=== PATIENT | male | born 1955 | race Caucasian/White ===

== ENCOUNTER 2016-05-02 08:00 | Outpatient (CLI) | payer MEDICARE | END 2016-05-02 08:01 | disposition home or self-care (01) | DX: I48.91 Unspecified atrial fibrillation (principal); Z79.899 Other long term (current) drug therapy ==

== ENCOUNTER 2016-05-29 13:22 | Outpatient (CLI) | payer MEDICARE | END 2016-05-29 13:23 | disposition home or self-care (01) | DX: I48.91 Unspecified atrial fibrillation (principal); Z79.899 Other long term (current) drug therapy ==

== ENCOUNTER 2016-06-13 15:24 | Outpatient (CLI) | payer MEDICARE | END 2016-06-13 15:25 | disposition home or self-care (01) | DX: I48.91 Unspecified atrial fibrillation (principal); Z79.899 Other long term (current) drug therapy ==

== ENCOUNTER 2016-06-29 14:25 | Outpatient (CLI) | payer MEDICARE | END 2016-06-29 14:26 | DX: I48.91 Unspecified atrial fibrillation (principal); Z79.01 Long term (current) use of anticoagulants ==

== ENCOUNTER 2016-07-10 10:05 | Outpatient (CLI) | payer MEDICARE | END 2016-07-10 10:06 | disposition home or self-care (01) | DX: I48.91 Unspecified atrial fibrillation (principal); Z79.899 Other long term (current) drug therapy ==

== ENCOUNTER 2016-07-21 13:01 | Outpatient (CLI) | payer MEDICARE | END 2016-07-21 13:02 | disposition home or self-care (01) | DX: I48.91 Unspecified atrial fibrillation (principal); Z79.899 Other long term (current) drug therapy ==

== ENCOUNTER 2016-08-03 14:54 | Outpatient (CLI) | payer MEDICARE | END 2016-08-03 14:55 | disposition home or self-care (01) | DX: I48.91 Unspecified atrial fibrillation (principal); Z79.899 Other long term (current) drug therapy ==

== ENCOUNTER 2016-08-03 16:08 | Outpatient (CLI) | payer MEDICARE, MEDICAID | END 2016-08-03 16:09 | disposition home or self-care (01) | DX: M51.37 Other intervertebral disc degeneration, lumbosacral region (principal); M41.85 Other forms of scoliosis, thoracolumbar region; M43.17 Spondylolisthesis, lumbosacral region; M95.5 Acquired deformity of pelvis ==

== ENCOUNTER 2016-08-15 08:00 | Outpatient (CLI) | payer MEDICARE | END 2016-08-15 08:01 | DX: E78.5 Hyperlipidemia, unspecified (principal); I48.91 Unspecified atrial fibrillation; E11.9 Type 2 diabetes mellitus without complications; I50.9 Heart failure, unspecified; Z79.899 Other long term (current) drug therapy ==

== ENCOUNTER 2016-09-01 11:56 | Outpatient (CLI) | payer MEDICARE | END 2016-09-01 11:57 | disposition home or self-care (01) | DX: L97.909 Non-pressure chronic ulcer of unspecified part of unspecified lower leg with unspecified severity (principal) ==

== ENCOUNTER 2016-09-04 08:00 | Outpatient (CLI) | payer MEDICARE | END 2016-09-04 08:01 | disposition home or self-care (01) | DX: I48.91 Unspecified atrial fibrillation (principal); Z79.899 Other long term (current) drug therapy; K92.1 Melena ==

== ENCOUNTER 2016-09-21 06:54 | Outpatient (CLI) | payer MEDICARE | END 2016-09-21 06:55 | LOC: LAB.N 06:54 | PROVIDERS: ATTEND Nurse Practitioner Gerontology | DX: I48.91 Unspecified atrial fibrillation (principal); Z79.899 Other long term (current) drug therapy | CPT/HCPCS: 85610 ==

== ENCOUNTER 2016-09-26 08:00 | Outpatient (CLI) | payer MEDICAID, MEDICARE | END 2016-09-26 08:01 | disposition home or self-care (01) | LOC: LAB.N 08:00 | PROVIDERS: ATTEND Nurse Practitioner Gerontology | DX: I48.91 Unspecified atrial fibrillation (principal); Z79.899 Other long term (current) drug therapy | CPT/HCPCS: 85610 ==

== ENCOUNTER 2016-10-09 08:00 | Outpatient (CLI) | payer MEDICAID, MEDICARE | END 2016-10-09 08:01 | LOC: LAB.N 08:00 | PROVIDERS: ATTEND Nurse Practitioner Gerontology | DX: I48.91 Unspecified atrial fibrillation (principal) | CPT/HCPCS: 85610 ==

== ENCOUNTER 2016-10-23 15:07 | Outpatient (CLI) | payer MEDICARE | END 2016-10-23 15:08 | disposition home or self-care (01) | LOC: LAB.N 15:07 | PROVIDERS: ATTEND Nurse Practitioner Gerontology | DX: I48.91 Unspecified atrial fibrillation (principal) | CPT/HCPCS: 85610 ==

== ENCOUNTER 2016-11-10 13:21 | Outpatient (CLI) | payer MEDICARE | END 2016-11-10 13:22 | disposition home or self-care (01) | LOC: LAB.N 13:21 | PROVIDERS: ATTEND Nurse Practitioner Gerontology | DX: I48.91 Unspecified atrial fibrillation (principal); Z79.899 Other long term (current) drug therapy | CPT/HCPCS: 85610 ==

== ENCOUNTER 2016-11-20 14:29 | Outpatient (CLI) | payer MEDICARE ==
[2016-11-20 21:17] LABS: HEMOGLOBIN A1C 0.83 g/dL
== END 2016-11-20 14:30 | disposition home or self-care (01) ==
LOC: LAB.N 14:29
PROVIDERS: ATTEND Nurse Practitioner Gerontology
DX: E11.9 Type 2 diabetes mellitus without complications (principal)
CPT/HCPCS: 36415; 83036

== ENCOUNTER 2016-11-30 14:24 | Outpatient (CLI) | payer MEDICARE | END 2016-11-30 14:25 | disposition home or self-care (01) | LOC: LAB.N 14:24 | PROVIDERS: ATTEND Nurse Practitioner Gerontology | DX: I48.91 Unspecified atrial fibrillation (principal); Z79.899 Other long term (current) drug therapy | CPT/HCPCS: 85610 ==

== ENCOUNTER 2016-12-06 09:02 | Outpatient (CLI) | payer MEDICARE | END 2016-12-06 09:03 | LOC: LAB.N 09:02 | PROVIDERS: ATTEND Nurse Practitioner Gerontology | DX: I48.91 Unspecified atrial fibrillation (principal) | CPT/HCPCS: 85610 ==

== ENCOUNTER 2016-12-18 14:34 | Outpatient (CLI) | payer MEDICARE | END 2016-12-18 14:35 | LOC: LAB.N 14:34 | PROVIDERS: ATTEND Nurse Practitioner Gerontology | DX: I48.91 Unspecified atrial fibrillation (principal) | CPT/HCPCS: 85610 ==

== ENCOUNTER 2017-01-02 13:57 | Outpatient (CLI) | payer MEDICARE | END 2017-01-02 13:58 | disposition home or self-care (01) | LOC: LAB.N 13:57 | PROVIDERS: ATTEND Nurse Practitioner Gerontology | DX: I48.91 Unspecified atrial fibrillation (principal); Z79.899 Other long term (current) drug therapy | CPT/HCPCS: 85610 ==

== ENCOUNTER 2017-01-10 15:30 | Outpatient (CLI) | payer MEDICARE | END 2017-01-10 15:31 | LOC: LAB.N 15:30 | PROVIDERS: ATTEND Nurse Practitioner Gerontology | DX: I48.91 Unspecified atrial fibrillation (principal); Z79.899 Other long term (current) drug therapy | CPT/HCPCS: 85610 ==

== ENCOUNTER 2017-01-25 14:29 | Outpatient (CLI) | payer MEDICARE | END 2017-01-25 14:30 | LOC: LAB.N 14:29 | PROVIDERS: ATTEND Nurse Practitioner Gerontology | DX: I48.91 Unspecified atrial fibrillation (principal); Z79.899 Other long term (current) drug therapy | CPT/HCPCS: 85610 ==

== ENCOUNTER 2017-01-31 14:43 | Outpatient (CLI) | payer MEDICARE | END 2017-01-31 14:44 | disposition home or self-care (01) | LOC: LAB.N 14:43 | PROVIDERS: ATTEND Nurse Practitioner Gerontology | DX: I48.91 Unspecified atrial fibrillation (principal); Z79.899 Other long term (current) drug therapy | CPT/HCPCS: 85610 ==

== ENCOUNTER 2017-02-15 08:00 | Outpatient (CLI) | payer MEDICARE | END 2017-02-15 08:01 | disposition home or self-care (01) | LOC: LAB.N 08:00 | PROVIDERS: ATTEND Nurse Practitioner Gerontology | DX: I48.91 Unspecified atrial fibrillation (principal); Z79.899 Other long term (current) drug therapy | CPT/HCPCS: 85610 ==

== ENCOUNTER 2017-03-01 15:03 | Outpatient (CLI) | payer MEDICARE | END 2017-03-01 15:04 | LOC: LAB.N 15:03 | PROVIDERS: ATTEND Nurse Practitioner Gerontology | DX: I48.91 Unspecified atrial fibrillation (principal); Z79.899 Other long term (current) drug therapy | CPT/HCPCS: 85610 ==

== ENCOUNTER 2017-03-16 08:00 | Outpatient (CLI) | payer MEDICARE | END 2017-03-16 08:01 | disposition home or self-care (01) | LOC: LAB.N 08:00 | PROVIDERS: ATTEND Nurse Practitioner Gerontology | DX: I48.91 Unspecified atrial fibrillation (principal); Z79.899 Other long term (current) drug therapy | CPT/HCPCS: 85610 ==

== ENCOUNTER 2017-03-30 14:19 | Outpatient (CLI) | payer MEDICARE | END 2017-03-30 14:20 | disposition home or self-care (01) | LOC: LAB.N 14:19 | PROVIDERS: ATTEND Nurse Practitioner Gerontology | DX: I48.91 Unspecified atrial fibrillation (principal); Z79.899 Other long term (current) drug therapy | CPT/HCPCS: 85610 ==

== ENCOUNTER 2017-04-19 08:00 | Outpatient (CLI) | payer MEDICARE ==
[2017-04-19 19:00] LABS: CALCIUM 8.8 mg/dL (8.5-10.3); CREATININE 1.3 mg/dL (0.6-1.2); POTASSIUM 4.9 mmol/L (3.5-5.0)
[2017-04-19 19:09] LABS: HEMOGLOBIN A1C 0.92 g/dL
== END 2017-04-19 23:59 ==
LOC: LAB.N 08:00
PROVIDERS: ATTEND Nurse Practitioner Gerontology
DX: E11.40 Type 2 diabetes mellitus with diabetic neuropathy, unspecified (principal); I48.91 Unspecified atrial fibrillation; N18.9 Chronic kidney disease, unspecified; Z79.899 Other long term (current) drug therapy
CPT/HCPCS: 36415; 80048; 83036; 85610

== ENCOUNTER 2017-05-10 08:00 | Outpatient (CLI) | payer MEDICARE | END 2017-05-10 08:01 | disposition home or self-care (01) | LOC: LAB.N 08:00 | PROVIDERS: ATTEND Nurse Practitioner Gerontology | DX: I48.91 Unspecified atrial fibrillation (principal); Z79.899 Other long term (current) drug therapy | CPT/HCPCS: 85610 ==

== ENCOUNTER 2017-05-25 13:45 | Outpatient (CLI) | payer MEDICARE | END 2017-05-25 13:46 | disposition home or self-care (01) | LOC: LAB.N 13:45 | PROVIDERS: ATTEND Nurse Practitioner Gerontology | DX: Z79.899 Other long term (current) drug therapy (principal); I48.91 Unspecified atrial fibrillation | CPT/HCPCS: 85610 ==

== ENCOUNTER 2017-07-02 14:17 | Outpatient (CLI) | payer MEDICARE | END 2017-07-02 14:18 | disposition home or self-care (01) | LOC: LAB.N 14:17 | PROVIDERS: ATTEND Nurse Practitioner Gerontology | DX: I48.91 Unspecified atrial fibrillation (principal); Z79.899 Other long term (current) drug therapy | CPT/HCPCS: 85610 ==

== ENCOUNTER 2017-08-08 08:00 | Outpatient (CLI) | payer MEDICARE | END 2017-08-08 08:01 | LOC: LAB.N 08:00 | PROVIDERS: ATTEND Nurse Practitioner Gerontology | DX: I48.91 Unspecified atrial fibrillation (principal); Z79.899 Other long term (current) drug therapy | CPT/HCPCS: 85610 ==

== ENCOUNTER 2017-08-15 09:33 | Outpatient (CLI) | payer MEDICARE | END 2017-08-15 09:34 | disposition home or self-care (01) | LOC: LAB.N 09:33 | PROVIDERS: ATTEND Nurse Practitioner Gerontology | DX: I48.91 Unspecified atrial fibrillation (principal); Z79.899 Other long term (current) drug therapy | CPT/HCPCS: 85610 ==

== ENCOUNTER 2017-08-21 08:47 | Outpatient (CLI) | payer MEDICARE ==
[2017-08-21 12:48] LABS: CALCIUM 8.9 mg/dL (8.5-10.3); CREATININE 1.2 mg/dL (0.6-1.2); HEMOGLOBIN A1C 1.13 g/dL; HEMOGLOBIN A1C % 8.6 % (4.6-6.2)
== END 2017-08-21 08:48 | disposition home or self-care (01) ==
LOC: LAB.N 08:47
PROVIDERS: ATTEND Nurse Practitioner Gerontology
DX: E11.40 Type 2 diabetes mellitus with diabetic neuropathy, unspecified (principal); I48.91 Unspecified atrial fibrillation; Z79.899 Other long term (current) drug therapy
CPT/HCPCS: 36415; 80048; 82043; 83036; 85610

== ENCOUNTER 2017-08-28 08:00 | Outpatient (CLI) | payer MEDICARE | END 2017-08-28 08:01 | LOC: LAB.N 08:00 | PROVIDERS: ATTEND Nurse Practitioner Gerontology | DX: I48.91 Unspecified atrial fibrillation (principal); Z79.899 Other long term (current) drug therapy | CPT/HCPCS: 85610 ==

== ENCOUNTER 2017-09-17 11:37 | Outpatient (CLI) | payer MEDICARE | END 2017-09-17 11:38 | disposition home or self-care (01) | LOC: LAB.N 11:37 | PROVIDERS: ATTEND Nurse Practitioner Gerontology | DX: I48.91 Unspecified atrial fibrillation (principal); Z79.899 Other long term (current) drug therapy | CPT/HCPCS: 85610 ==

== ENCOUNTER 2017-10-01 13:29 | Outpatient (CLI) | payer MEDICARE, MEDICAID | END 2017-10-01 13:30 | disposition home or self-care (01) | LOC: LAB.N 13:29 | PROVIDERS: ATTEND Nurse Practitioner Gerontology | DX: I48.91 Unspecified atrial fibrillation (principal); Z79.899 Other long term (current) drug therapy | CPT/HCPCS: 85610 ==

== ENCOUNTER 2017-10-03 08:00 | Outpatient (CLI) | payer MEDICARE, MEDICAID | END 2017-10-03 08:01 | disposition home or self-care (01) | LOC: LAB.N 08:00 | PROVIDERS: ATTEND Nurse Practitioner Gerontology | DX: I48.91 Unspecified atrial fibrillation (principal); Z79.899 Other long term (current) drug therapy | CPT/HCPCS: 85610 ==

== ENCOUNTER 2017-10-09 14:35 | Outpatient (CLI) | payer MEDICARE, MEDICAID | END 2017-10-09 14:36 | LOC: LAB.N 14:35 | PROVIDERS: ATTEND Nurse Practitioner Gerontology | DX: I48.91 Unspecified atrial fibrillation (principal); Z79.899 Other long term (current) drug therapy | CPT/HCPCS: 85610 ==

== ENCOUNTER 2017-10-11 14:03 | Outpatient (CLI) | payer MEDICARE, MEDICAID | END 2017-10-11 14:04 | disposition home or self-care (01) | LOC: LAB.N 14:03 | PROVIDERS: ATTEND Nurse Practitioner Gerontology | DX: I48.91 Unspecified atrial fibrillation (principal); Z79.899 Other long term (current) drug therapy | CPT/HCPCS: 85610 ==

== ENCOUNTER 2017-10-22 14:39 | Outpatient (CLI) | payer MEDICARE, MEDICAID | END 2017-10-22 14:40 | disposition home or self-care (01) | LOC: LAB.N 14:39 | PROVIDERS: ATTEND Nurse Practitioner Gerontology | DX: I48.91 Unspecified atrial fibrillation (principal); Z79.899 Other long term (current) drug therapy | CPT/HCPCS: 85610 ==

== ENCOUNTER 2017-11-02 13:26 | Outpatient (CLI) | payer MEDICARE, MEDICAID | END 2017-11-02 13:27 | disposition home or self-care (01) | LOC: LAB.N 13:26 | PROVIDERS: ATTEND Nurse Practitioner Gerontology | DX: I48.91 Unspecified atrial fibrillation (principal); Z79.899 Other long term (current) drug therapy | CPT/HCPCS: 85610 ==

== ENCOUNTER 2017-11-13 10:46 | Outpatient (CLI) | payer MEDICARE, MEDICAID | END 2017-11-13 10:47 | disposition home or self-care (01) | LOC: LAB.N 10:46 | PROVIDERS: ATTEND Nurse Practitioner Gerontology | DX: I48.91 Unspecified atrial fibrillation (principal); Z79.899 Other long term (current) drug therapy | CPT/HCPCS: 85610 ==

== ENCOUNTER 2017-11-19 08:00 | Outpatient (CLI) | payer MEDICARE, MEDICAID | END 2017-11-19 08:01 | disposition home or self-care (01) | LOC: LAB.N 08:00 | PROVIDERS: ATTEND Nurse Practitioner Gerontology | DX: I48.91 Unspecified atrial fibrillation (principal); Z79.899 Other long term (current) drug therapy | CPT/HCPCS: 85610 ==

== ENCOUNTER 2017-11-30 14:45 | Outpatient (CLI) | payer MEDICARE, MEDICAID | END 2017-11-30 14:46 | disposition home or self-care (01) | LOC: LAB.N 14:45 | PROVIDERS: ATTEND Nurse Practitioner Gerontology | DX: I48.91 Unspecified atrial fibrillation (principal); Z79.899 Other long term (current) drug therapy | CPT/HCPCS: 85610 ==

== ENCOUNTER 2018-01-07 08:00 | Outpatient (CLI) | payer MEDICARE, MEDICAID | END 2018-01-07 08:01 | LOC: LAB.N 08:00 | PROVIDERS: ATTEND Nurse Practitioner Gerontology | DX: I48.91 Unspecified atrial fibrillation (principal); Z79.899 Other long term (current) drug therapy | CPT/HCPCS: 85610 ==

== ENCOUNTER 2018-02-05 15:41 | Outpatient (CLI) | payer MEDICARE, MEDICAID | END 2018-02-05 15:42 | LOC: LAB.N 15:41 | PROVIDERS: ATTEND Nurse Practitioner Gerontology | DX: I48.91 Unspecified atrial fibrillation (principal); Z79.899 Other long term (current) drug therapy | CPT/HCPCS: 85610 ==

== ENCOUNTER 2018-03-14 11:20 | Outpatient (CLI) | payer MEDICARE, MEDICAID ==
[2018-03-14 19:40] LABS: INR 2.5 (0.8-1.2); PT - PROTHROMBIN TIME 28.5 secs (9.9-12.6)
== END 2018-03-14 11:21 ==
LOC: LAB.N 11:20
PROVIDERS: ATTEND Nurse Practitioner Gerontology
DX: I48.91 Unspecified atrial fibrillation (principal); Z79.899 Other long term (current) drug therapy
CPT/HCPCS: 36415; 85610

== ENCOUNTER 2018-06-06 08:00 | Outpatient (CLI) | payer MEDICARE, MEDICAID ==
[2018-06-06 18:50] LABS: BASOPHILS # (AUTO) 0.1 10^3/uL (0.0-0.1); EOSINOPHILS # (AUTO) 0.1 10^3/uL (0.0-0.7); EOSINOPHILS % (AUTO) 2.3 %; HGB - HEMOGLOBIN 13.5 g/dL (14.0-18.0); LYMPHOCYTES # (AUTO) 0.8 10^3/uL (1.5-3.5); LYMPHOCYTES % (AUTO) 12.9 %; MEAN CORPUSCULAR HEMOGLOBIN 31.2 pg (27.0-31.0); MEAN CORPUSCULAR HGB CONC 32.6 g/dL (32.0-36.0); MEAN PLATELET VOLUME 9.1 fL (7.4-11.4); MONOCYTES # (AUTO) 0.7 10^3/uL (0.0-1.0); MONOCYTES % (AUTO) 10.9 %; NEUTROPHILS # (AUTO) 4.6 10^3/uL (1.5-6.6); NEUTROPHILS % (AUTO) 72.9 %; PLT - PLATELET COUNT 205 10^3/uL (130-450); RED BLOOD COUNT 4.31 10^6/uL (4.70-6.10); RED CELL DISTRIBUTION WIDTH 15.3 % (12.0-15.0); WHITE BLOOD COUNT 6.4 x10^3/uL (4.8-10.8)
[2018-06-06 19:21] LABS: ALBUMIN 3.6 g/dL (3.2-5.5); ALBUMIN/GLOBULIN RATIO 0.9 (1.0-2.2); ALKALINE PHOSPHATASE 49 IU/L (42-121); ALT ALANINE AMINOTRANSFERASE 24 IU/L (10-60); AST ASPARTATE AMINOTRANSFERASE 19 IU/L (10-42); BILIRUBIN,TOTAL 0.8 mg/dL (0.2-1.0); BUN - BLOOD UREA NITROGEN 17 mg/dL (6-20); CALCIUM 8.9 mg/dL (8.5-10.3); CARBON DIOXIDE - CO2 27 mmol/L (21-32); CHLORIDE 100 mmol/L (101-111); CHOL/HDL RATIO 4.3 (<5.0); CHOLESTEROL 149 mg/dL; GFR - MDRD 75 (>89); GLUCOSE 199 mg/dL (70-100); HDL CHOLESTEROL 35 mg/dL; LDL CHOLESTEROL,CALCULATED 91 mg/dL; LDL/HDL RATIO 2.6 (<3.6); SODIUM 134 mmol/L (135-145); TOTAL PROTEIN 7.5 g/dL (6.7-8.2); VLDL CHOLESTEROL 23 mg/dL
== END 2018-06-06 23:59 | disposition home or self-care (01) ==
LOC: LAB.N 08:00
PROVIDERS: ATTEND Nurse Practitioner Gerontology
DX: I48.91 Unspecified atrial fibrillation (principal); Z79.899 Other long term (current) drug therapy; I12.9 Hypertensive chronic kidney disease with stage 1 through stage 4 chronic kidney disease, or unspecified chronic kidney disease; N18.9 Chronic kidney disease, unspecified; E11.622 Type 2 diabetes mellitus with other skin ulcer; E78.5 Hyperlipidemia, unspecified
CPT/HCPCS: 36415; 80053; 80061; 83721; 84443; 85025; 85610

== ENCOUNTER 2018-06-18 08:00 | Outpatient (CLI) | payer MEDICARE, MEDICAID | END 2018-06-18 23:59 | disposition home or self-care (01) | LOC: LAB.N 08:00 | PROVIDERS: ATTEND Nurse Practitioner Gerontology | DX: I48.91 Unspecified atrial fibrillation (principal); Z79.899 Other long term (current) drug therapy | CPT/HCPCS: 85610 ==

== ENCOUNTER 2018-08-28 08:00 | Outpatient (CLI) | payer MEDICARE, MEDICAID | END 2018-08-28 23:59 | disposition home or self-care (01) | LOC: LAB.N 08:00 | PROVIDERS: ATTEND Nurse Practitioner Gerontology | DX: I48.91 Unspecified atrial fibrillation (principal); Z79.899 Other long term (current) drug therapy | CPT/HCPCS: 85610 ==

== ENCOUNTER 2018-09-02 08:00 | Outpatient (CLI) | payer MEDICARE, MEDICAID | END 2018-09-02 23:59 | disposition home or self-care (01) | LOC: LAB.N 08:00 | PROVIDERS: ATTEND Nurse Practitioner Gerontology | DX: I48.91 Unspecified atrial fibrillation (principal); Z79.899 Other long term (current) drug therapy | CPT/HCPCS: 85610 ==

== ENCOUNTER 2018-09-04 14:24 | Outpatient (CLI) | payer MEDICARE, MEDICAID | END 2018-09-04 23:59 | disposition home or self-care (01) | LOC: LAB.N 14:24 | PROVIDERS: ATTEND Nurse Practitioner Gerontology | DX: I48.91 Unspecified atrial fibrillation (principal); Z79.899 Other long term (current) drug therapy | CPT/HCPCS: 85610 ==

== ENCOUNTER 2018-09-18 14:32 | Outpatient (CLI) | payer MEDICARE, MEDICAID | END 2018-09-18 23:59 | disposition home or self-care (01) | LOC: LAB.N 14:32 | PROVIDERS: ATTEND Nurse Practitioner Gerontology | DX: I48.91 Unspecified atrial fibrillation (principal); Z79.899 Other long term (current) drug therapy | CPT/HCPCS: 85610 ==

== ENCOUNTER 2018-09-26 08:00 | Outpatient (CLI) | payer MEDICARE, MEDICAID | END 2018-09-26 23:59 | disposition home or self-care (01) | LOC: LAB.N 08:00 | PROVIDERS: ATTEND Nurse Practitioner Gerontology | DX: I48.91 Unspecified atrial fibrillation (principal); Z79.899 Other long term (current) drug therapy | CPT/HCPCS: 85610 ==

== ENCOUNTER 2018-10-04 08:00 | Outpatient (CLI) | payer MEDICARE, MEDICAID | END 2018-10-04 23:59 | disposition home or self-care (01) | LOC: LAB.N 08:00 | PROVIDERS: ATTEND Nurse Practitioner Gerontology | DX: I48.91 Unspecified atrial fibrillation (principal); Z79.899 Other long term (current) drug therapy | CPT/HCPCS: 85610 ==

== ENCOUNTER 2018-10-14 08:00 | Outpatient (CLI) | payer MEDICARE, MEDICAID | END 2018-10-14 23:59 | disposition home or self-care (01) | LOC: LAB.N 08:00 | PROVIDERS: ATTEND Nurse Practitioner Gerontology | DX: I48.91 Unspecified atrial fibrillation (principal); Z79.899 Other long term (current) drug therapy | CPT/HCPCS: 85610 ==

== ENCOUNTER 2018-10-30 08:00 | Outpatient (CLI) | payer MEDICARE, MEDICAID | END 2018-10-30 23:59 | disposition home or self-care (01) | LOC: LAB.N 08:00 | PROVIDERS: ATTEND Nurse Practitioner Gerontology | DX: I48.91 Unspecified atrial fibrillation (principal) | CPT/HCPCS: 85610 ==

== ENCOUNTER 2018-11-13 15:44 | Outpatient (CLI) | payer MEDICARE, MEDICAID | END 2018-11-13 23:59 | disposition home or self-care (01) | LOC: LAB.N 15:44 | PROVIDERS: ATTEND Nurse Practitioner Gerontology | DX: I48.91 Unspecified atrial fibrillation (principal); Z79.899 Other long term (current) drug therapy | CPT/HCPCS: 85610 ==

== ENCOUNTER 2018-12-03 08:00 | Outpatient (CLI) | payer MEDICARE, MEDICAID | END 2018-12-03 23:59 | disposition home or self-care (01) | LOC: LAB.N 08:00 | PROVIDERS: ATTEND Nurse Practitioner Gerontology | DX: I48.91 Unspecified atrial fibrillation (principal); Z79.899 Other long term (current) drug therapy | CPT/HCPCS: 85610 ==

== ENCOUNTER 2019-01-07 08:00 | Outpatient (CLI) | payer MEDICARE, MEDICAID | END 2019-01-07 23:59 | disposition home or self-care (01) | LOC: LAB.N 08:00 | PROVIDERS: ATTEND Nurse Practitioner Gerontology | DX: I48.91 Unspecified atrial fibrillation (principal); Z79.899 Other long term (current) drug therapy | CPT/HCPCS: 85610 ==

== ENCOUNTER 2019-03-03 08:00 | Outpatient (CLI) | payer MEDICARE, MEDICAID ==
[2019-03-03 19:05] LABS: BASOPHILS # (AUTO) 0.1 10^3/uL (0.0-0.1); BASOPHILS % (AUTO) 0.6 %; EOSINOPHILS % (AUTO) 0.1 %; HGB - HEMOGLOBIN 13.2 g/dL (14.0-18.0); LYMPHOCYTES # (AUTO) 1.1 10^3/uL (1.5-3.5); LYMPHOCYTES % (AUTO) 13.3 %; MEAN CORPUSCULAR HEMOGLOBIN 29.1 pg (27.0-31.0); MEAN CORPUSCULAR HGB CONC 31.1 g/dL (32.0-36.0); MEAN CORPUSCULAR VOLUME 93.6 fL (80.0-94.0); MEAN PLATELET VOLUME 11.3 fL (7.4-11.4); MONOCYTES # (AUTO) 0.6 10^3/uL (0.0-1.0); MONOCYTES % (AUTO) 6.9 %; NEUTROPHILS # (AUTO) 6.4 10^3/uL (1.5-6.6); PLT - PLATELET COUNT 273 10^3/uL (130-450); RED BLOOD COUNT 4.54 10^6/uL (4.70-6.10); RED CELL DISTRIBUTION WIDTH 14.5 % (12.0-15.0); WHITE BLOOD COUNT 8.2 x10^3/uL (4.8-10.8)
[2019-03-03 19:40] LABS: ALBUMIN 2.8 g/dL (3.2-5.5); ALBUMIN/GLOBULIN RATIO 0.5 (1.0-2.2); ALKALINE PHOSPHATASE 63 IU/L (42-121); ALT ALANINE AMINOTRANSFERASE 16 IU/L (10-60); AST ASPARTATE AMINOTRANSFERASE 18 IU/L (10-42); BILIRUBIN,TOTAL 0.5 mg/dL (0.2-1.0); BUN - BLOOD UREA NITROGEN 24 mg/dL (6-20); CALCIUM 8.4 mg/dL (8.5-10.3); CARBON DIOXIDE - CO2 25 mmol/L (21-32); CHLORIDE 93 mmol/L (101-111); CHOL/HDL RATIO 3.9 (<5.0); CHOLESTEROL 170 mg/dL; CREATININE 1.3 mg/dL (0.6-1.2); GFR - MDRD 55 (>89); HDL CHOLESTEROL 44 mg/dL; LDL CHOLESTEROL,CALCULATED 99 mg/dL; LDL/HDL RATIO 2.3 (<3.6); SODIUM 128 mmol/L (135-145); VLDL CHOLESTEROL 27 mg/dL
[2019-03-03 19:48] LABS: HB2 TOTAL 13.4 g/dL; HEMOGLOBIN A1C 1.95 g/dL; HEMOGLOBIN A1C % 15.5 % (4.6-6.2)
[2019-03-03 19:50] LABS: GLUCOSE 584 mg/dL (70-100)
== END 2019-03-03 23:59 | disposition home or self-care (01) ==
LOC: LAB.N 08:00
PROVIDERS: ATTEND Nurse Practitioner Gerontology
DX: I48.91 Unspecified atrial fibrillation (principal); Z79.899 Other long term (current) drug therapy; E11.622 Type 2 diabetes mellitus with other skin ulcer; E78.5 Hyperlipidemia, unspecified; I11.0 Hypertensive heart disease with heart failure; I50.9 Heart failure, unspecified; R06.02 Shortness of breath
CPT/HCPCS: 36415; 80053; 80061; 83036; 83721; 83880; 85025; 85610

== ENCOUNTER 2019-03-10 14:51 | Outpatient (CLI) | payer MEDICARE, MEDICAID | END 2019-03-10 23:59 | disposition home or self-care (01) | LOC: LAB.N 14:51 | PROVIDERS: ATTEND Nurse Practitioner Gerontology | DX: I48.91 Unspecified atrial fibrillation (principal); Z79.899 Other long term (current) drug therapy | CPT/HCPCS: 85610 ==

== ENCOUNTER 2019-03-17 14:59 | Outpatient (CLI) | payer MEDICARE, MEDICAID | END 2019-03-17 23:59 | disposition home or self-care (01) | LOC: LAB.N 14:59 | PROVIDERS: ATTEND Nurse Practitioner Gerontology | DX: I48.91 Unspecified atrial fibrillation (principal); Z79.899 Other long term (current) drug therapy | CPT/HCPCS: 85610 ==

== ENCOUNTER 2019-03-24 15:45 | Outpatient (CLI) | payer MEDICARE, MEDICAID | END 2019-03-24 23:59 | disposition home or self-care (01) | LOC: LAB.N 15:45 | PROVIDERS: ATTEND Nurse Practitioner Gerontology | DX: I48.91 Unspecified atrial fibrillation (principal); Z79.899 Other long term (current) drug therapy | CPT/HCPCS: 85610 ==

== ENCOUNTER 2019-03-31 15:16 | Outpatient (CLI) | payer MEDICAID, MEDICARE | END 2019-03-31 23:59 | disposition home or self-care (01) | LOC: LAB.N 15:16 | PROVIDERS: ATTEND Nurse Practitioner Gerontology | DX: I48.91 Unspecified atrial fibrillation (principal); Z79.899 Other long term (current) drug therapy | CPT/HCPCS: 85610 ==

== ENCOUNTER 2019-05-06 08:00 | Outpatient (CLI) | payer MEDICARE | END 2019-05-06 23:59 | disposition home or self-care (01) | LOC: LAB.N 08:00 | PROVIDERS: ATTEND Nurse Practitioner Gerontology | DX: I48.91 Unspecified atrial fibrillation (principal); Z79.899 Other long term (current) drug therapy | CPT/HCPCS: 85610 ==

== ENCOUNTER 2019-06-10 14:35 | Outpatient (CLI) | payer MEDICARE | END 2019-06-10 23:59 | disposition home or self-care (01) | LOC: LAB.N 14:35 | PROVIDERS: ATTEND Nurse Practitioner Gerontology | DX: I48.91 Unspecified atrial fibrillation (principal); Z79.899 Other long term (current) drug therapy | CPT/HCPCS: 85610 ==

== ENCOUNTER 2019-06-19 14:37 | Outpatient (CLI) | payer MEDICARE ==
[2019-06-19 18:44] LABS: HB2 TOTAL 14.5 g/dL; HEMOGLOBIN A1C 1.09 g/dL
== END 2019-06-19 23:59 | disposition home or self-care (01) ==
LOC: LAB.N 14:37
PROVIDERS: ATTEND Nurse Practitioner Gerontology
DX: E11.40 Type 2 diabetes mellitus with diabetic neuropathy, unspecified (principal); I48.91 Unspecified atrial fibrillation; Z79.899 Other long term (current) drug therapy
CPT/HCPCS: 36415; 83036; 85610

== ENCOUNTER 2019-07-03 14:24 | Outpatient (CLI) | payer MEDICARE | END 2019-07-03 23:59 | disposition home or self-care (01) | LOC: LAB.N 14:24 | PROVIDERS: ATTEND Nurse Practitioner Gerontology | DX: I48.91 Unspecified atrial fibrillation (principal); Z79.899 Other long term (current) drug therapy | CPT/HCPCS: 85610 ==

== ENCOUNTER 2019-11-12 08:00 | Outpatient (CLI) | payer MEDICARE | END 2019-11-12 23:59 | disposition home or self-care (01) | LOC: LAB.WCP 08:00 | PROVIDERS: ATTEND Physician Assistant | DX: I48.91 Unspecified atrial fibrillation (principal); Z79.01 Long term (current) use of anticoagulants ==

== ENCOUNTER 2019-12-25 08:00 | Outpatient (CLI) | payer MEDICARE | END 2019-12-25 23:59 | disposition home or self-care (01) | LOC: LAB.WCP 08:00 | PROVIDERS: ATTEND Nurse Practitioner Family | DX: I48.91 Unspecified atrial fibrillation (principal); Z79.01 Long term (current) use of anticoagulants ==

== ENCOUNTER 2020-04-06 16:10 | Outpatient (CLI) | payer MEDICARE ==
[2020-04-06 20:35] LABS: BASOPHILS # (AUTO) 0.1 10^3/uL (0.0-0.1); BASOPHILS % (AUTO) 1.5 %; EOSINOPHILS # (AUTO) 0.2 10^3/uL (0.0-0.7); EOSINOPHILS % (AUTO) 2.6 %; HGB - HEMOGLOBIN 15.8 g/dL (14.0-18.0); LYMPHOCYTES # (AUTO) 1.3 10^3/uL (1.5-3.5); LYMPHOCYTES % (AUTO) 19.4 %; MEAN CORPUSCULAR HEMOGLOBIN 29.9 pg (27.0-31.0); MEAN CORPUSCULAR HGB CONC 31.2 g/dL (32.0-36.0); MONOCYTES # (AUTO) 0.7 10^3/uL (0.0-1.0); MONOCYTES % (AUTO) 11.2 %; NEUTROPHILS # (AUTO) 4.3 10^3/uL (1.5-6.6); NEUTROPHILS % (AUTO) 64.8 %; PLT - PLATELET COUNT 220 10^3/uL (130-450); RED BLOOD COUNT 5.28 10^6/uL (4.70-6.10); WHITE BLOOD COUNT 6.6 x10^3/uL (4.8-10.8)
[2020-04-06 21:00] LABS: ALBUMIN 3.6 g/dL (3.2-5.5); ALBUMIN/GLOBULIN RATIO 0.9 (1.0-2.2); ALKALINE PHOSPHATASE 56 IU/L (42-121); ALT ALANINE AMINOTRANSFERASE 19 IU/L (10-60); AST ASPARTATE AMINOTRANSFERASE 17 IU/L (10-42); BILIRUBIN,TOTAL 0.5 mg/dL (0.2-1.0); BUN - BLOOD UREA NITROGEN 36 mg/dL (6-20); CALCIUM 8.6 mg/dL (8.5-10.3); CARBON DIOXIDE - CO2 31 mmol/L (21-32); CHLORIDE 95 mmol/L (101-111); CHOL/HDL RATIO 4.9 (<5.0); CHOLESTEROL 186 mg/dL; CREATININE 1.8 mg/dL (0.6-1.2); GLUCOSE 229 mg/dL (70-100); HDL CHOLESTEROL 38 mg/dL; LDL CHOLESTEROL,CALCULATED 90 mg/dL; LDL/HDL RATIO 2.4 (<3.6); SODIUM 135 mmol/L (135-145); TOTAL PROTEIN 7.7 g/dL (6.7-8.2); VLDL CHOLESTEROL 58 mg/dL
[2020-04-06 21:48] LABS: HEMOGLOBIN A1c% 11.4 % (4.27-6.07)
== END 2020-04-06 16:11 | disposition home or self-care (01) ==
LOC: LAB.N 16:10
PROVIDERS: ATTEND Nurse Practitioner Family
DX: E11.622 Type 2 diabetes mellitus with other skin ulcer (principal); I10 Essential (primary) hypertension; E78.5 Hyperlipidemia, unspecified
CPT/HCPCS: 36415; 80053; 80061; 83036; 83721; 85025

== ENCOUNTER 2020-04-15 07:34 | Outpatient (CLI) | payer MEDICARE, MEDICAID ==
--- NOTE | 2020-04-15 14:27 | XRAY Report ---
PROCEDURE: Chest 2 View X-Ray INDICATIONS: Congestive heart failure TECHNIQUE: 2 view(s) of the chest. COMPARISON: None FINDINGS: Surgical changes and devices: None. Lungs and pleura: Small right pleural effusion with overlying airspace opacity. No pneumothorax. T he left lung is clear. Mediastinum: Heart size is normal. Aortic ectasia. Bones and chest wall: No suspicious bony abnormalities. Soft tissues appear unremarkable. IMPRESSION: Small right pleural effusion and overlying airspace opacity which may be atelectasis or pneumonia. Reviewed by: Miller Gross MD on 04/15/2020 1:26 PM [facility] Approved by: Miller Gross MD on 04/15/2020 1:26 PM [facility] Station ID: [id number]
== END 2020-04-15 23:59 | disposition home or self-care (01) ==
LOC: DI.WCP 07:34
PROVIDERS: ATTEND Nurse Practitioner Family
DX: I50.9 Heart failure, unspecified (principal); J90 Pleural effusion, not elsewhere classified

== ENCOUNTER 2020-04-20 11:02 | Outpatient (CLI) | payer MEDICARE, MEDICAID ==
--- OUTSIDE RECORDS SUMMARY | 2020-04-20 15:01 | EXTERNAL MEDICAL SUMMARY RPT | Continuity of Care Document ---
: Demographics Phone Unavailable Preferred Language Occitan Marital Status Unknown Synagogue Affiliation Unknown Race Unknown Ethnic Group Unknown Author Organization [place] Address [address] [id number] Phone Care Team Providers Name Role Phone Jaun MEJÍA, Unavailable Unavailable Ivet MEJÍA Unavailable Unavailable Ivet MEJÍA, Unavailable Unavailable Maher, TACTICAL DEBRIEFER Joann C Unavailable Unavailable Pancho AUTO DAMAGE APPRAISER Ivet S Unavailable Unavailable Ivet Deleon Unavailable Unavailable JAUN ALMANZAR Unavailable Unavailable Iliana Cummins Unavailable Unavailable Clio, Dulce Unavailable Unavailable Julia Carreon Unavailable Unavailable Maher, Joann Unavailable Unavailable Tristin Baldwin Unavailable Unavailable Jess Mai Unavailable Unavailable Cathy Dunn Unavailable Unavailable Provider, Other Unavailable Unavailable Problems date description facility 2012-10-04 08:00 A[facility]IAL [facility]LLATION [facility] 2012-11-18 12:39 ATRIAL FIBRILLATION [facility] 2013-01-02 16:25 CELLULITIS NOS [facility] 2013-01-02 16:25 EDEMA [facility] 2013-01-02 16:30 ATRIAL FIBRILLATION [facility] 2013-01-02 16:30 ANTICOAGULANTS,LT,CURRENT USE [facility] 2013-01-27 10:21 ATRIAL FIBRILLATION [facility] 2013-01-27 10:21 ANTICOAGULANTS,LT,CURRENT USE [facility] 2013-01-28 15:11 OTHER LYMPHEDEMA [facility] 2013-02-10 08:00 ATRIAL FIBRILLATION [facility] 2013-02-10 08:00 ANTICOAGULANTS,LT,CURRENT USE [facility] 2013-03-13 08:36 ATRIAL FIBRILLATION [facility] 2013-03-13 08:36 ANTICOAGULANTS,LT,CURRENT USE [facility] 2013-03-13 15:40 URIN TRACT INFECTION NOS [facility] 2013-03-17 08:35 URIN TRACT INFECTION NOS [facility] 2013-03-24 13:41 ATRIAL FIBRILLATION [facility] 2013-03-24 13:41 ANTICOAGULANTS,LT,CURRENT USE [facility] 2013-04-01 08:13 ATRIAL FIBRILLATION [facility] 2013-04-01 08:13 ANTICOAGULANTS,LT,CURRENT USE [facility] 2013-05-20 12:56 ATRIAL FIBRILLATION [facility] 2013-05-20 12:56 ANTICOAGULANTS,LT,CURRENT USE [facility] 2013-07-15 11:35 DIAB MARGO WO COMPL, TYPE II OR [facility] UNSPEC TYPE, NOT UNCNTRLD 2013-07-15 11:35 HYPTNSV [facility] KID DIS, UNSPEC, W [facility] KD STAGE I-IV OR UNSP 2013-07-15 11:35 ATRIAL FIBRILLATION [facility] 2013-07-15 11:35 CHRONIC KIDNEY DISEASE, [facility] UNSPECIFIED 2013-07-30 10:52 DIAB MARGO WO COMPL, TYPE II OR [facility] UNSPEC TYPE, NOT UNCNTRLD 2013-07-30 10:52 ANEMIA NOS [facility] 2013-07-30 10:52 HYPTNSV [facility] KID DIS, UNSPEC, W [facility] KD STAGE I-IV OR UNSP 2013-07-30 10:52 CHRONIC KIDNEY DISEASE, [facility] UNSPECIFIED 2013-08-11 08:33 ATRIAL FIBRILLATION [facility] 2013-08-11 08:33 ANTICOAGULANTS,LT,CURRENT USE [facility] 2013-08-21 12:44 ATRIAL FIBRILLATION [facility] 2013-08-21 12:44 ANTICOAGULANTS,LT,CURRENT USE [facility] 2013-08-21 14:48 GENERAL MEDICAL EXAM NOS [facility] 2013-09-02 09:10 ATRIAL FIBRILLATION [facility] 2013-09-02 09:10 ANTICOAGULANTS,LT,CURRENT USE [facility] 2013-09-23 00:00 NEPHRITIS NOS [facility] 2013-09-23 00:00 PROTEINURIA [facility] 2013-09-23 19:34 ATRIAL FIBRILLATION [facility] 2013-09-23 19:34 ANTICOAGULANTS,LT,CURRENT USE [facility] 2013-10-13 14:05 ATRIAL FIBRILLATION [facility] 2013-10-13 14:05 ANTICOAGULANTS,LT,CURRENT USE [facility] 2013-10-15 08:18 DIAB MARGO WO COMPL, TYPE II OR [facility] UNSPEC TYPE, NOT UNCNTRLD 2013-10-15 08:18 IMPACTED CERUMEN [facility] 2013-10-15 08:18 PERIPH VASCULAR DIS NOS [facility] 2013-10-15 08:18 ACNE NEC [facility] 2013-10-16 12:12 GENERAL MEDICAL EXAM NOS [facility] 2013-11-06 14:20 ATRIAL FIBRILLATION [facility] 2013-11-06 14:20 ANTICOAGULANTS,LT,CURRENT USE [facility] 2013-12-01 10:00 ATRIAL FIBRILLATION [facility] 2013-12-01 10:00 ANTICOAGULANTS,LT,CURRENT USE [facility] 2014-01-06 10:00 ATRIAL FIBRILLATION [facility] 2014-01-06 10:00 ANTICOAGULANTS,LT,CURRENT USE [facility] 2014-01-15 11:53 DIAB MARGO WO COMPL, TYPE II OR [facility] UNSPEC TYPE, NOT UNCNTRLD 2014-02-18 13:11 DIAB MARGO WO COMPL, TYPE II OR [facility] UNSPEC TYPE, NOT UNCNTRLD 2014-02-18 13:21 ATRIAL FIBRILLATION [facility] 2014-02-18 13:21 ANTICOAGULANTS,LT,CURRENT USE [facility] 2014-03-30 08:00 ATRIAL FIBRILLATION [facility] 2014-03-30 08:00 ANTICOAGULANTS,LT,CURRENT USE [facility] 2014-04-14 16:30 ATRIAL FIBRILLATION [facility] 2014-04-14 16:30 ANTICOAGULANTS,LT,CURRENT USE [facility] 2014-05-07 14:21 ATRIAL FIBRILLATION [facility] 2014-05-07 14:21 ANTICOAGULANTS,LT,CURRENT USE [facility] 2014-05-12 08:52 GENERAL MEDICAL EXAM NOS [facility] 2014-05-26 07:09 ATRIAL FIBRILLATION [facility] 2014-05-26 07:09 ANTICOAGULANTS,LT,CURRENT USE [facility] 2014-05-26 15:25 GENERAL MEDICAL EXAM NOS [facility] 2014-06-08 14:32 ATRIAL FIBRILLATION [facility] 2014-06-08 14:32 ANTICOAGULANTS,LT,CURRENT USE [facility] 2014-06-22 14:35 ATRIAL FIBRILLATION [facility] 2014-06-22 14:35 ANTICOAGULANTS,LT,CURRENT USE [facility] 2014-06-25 15:39 GENERAL MEDICAL EXAM NOS [facility] 2014-07-02 13:00 ATRIAL FIBRILLATION [facility] 2014-07-02 13:00 ANTICOAGULANTS,LT,CURRENT USE [facility] 2014-07-16 08:00 ATRIAL FIBRILLATION [facility] 2014-07-16 08:00 ANTICOAGULANTS,LT,CURRENT USE [facility] 2014-08-04 08:00 ATRIAL FIBRILLATION [facility] 2014-08-04 08:00 ANTICOAGULANTS,LT,CURRENT USE [facility] 2014-08-28 08:00 ATRIAL FIBRILLATION [facility] 2014-08-28 08:00 ANTICOAGULANTS,LT,CURRENT USE [facility] 2014-08-28 10:07 DIAB MARGO WO COMPL, TYPE II OR [facility] UNSPEC TYPE, NOT UNCNTRLD 2014-08-28 10:07 HYPERTENSION NOS [facility] 2014-08-28 10:07 ATRIAL FIBRILLATION [facility] 2014-08-28 10:07 ANTICOAGULANTS,LT,CURRENT USE [facility] 2014-08-28 10:07 SCREEN LIPOID DISORDERS [facility] 2014-09-03 13:16 DIAB MARGO WO COMPL, TYPE II OR [facility] UNSPEC TYPE, NOT UNCNTRLD 2014-09-03 13:16 ANEMIA NOS [facility] 2014-09-08 21:05 DIAB MARGO WO COMPL, TYPE II OR [facility] UNSPEC TYPE, NOT UNCNTRLD 2014-09-08 21:05 ANEMIA NOS [facility] 2014-09-25 08:38 GENERAL MEDICAL EXAM NOS [facility] 2014-10-01 12:04 ATRIAL FIBRILLATION [facility] 2014-10-01 12:04 ANTICOAGULANTS,LT,CURRENT USE [facility] 2014-10-28 15:14 ATRIAL FIBRILLATION [facility] 2014-10-28 15:14 ANTICOAGULANTS,LT,CURRENT USE [facility] 2014-12-11 09:48 DIAB MARGO WO COMPL, TYPE II OR [facility] UNSPEC TYPE, NOT UNCNTRLD 2014-12-11 09:48 ATRIAL FIBRILLATION [facility] 2014-12-11 09:48 ANTICOAGULANTS,LT,CURRENT USE [facility] 2015-01-25 10:36 ATRIAL FIBRILLATION [facility] 2015-01-25 10:36 ANTICOAGULANTS,LT,CURRENT USE [facility] 2015-03-12 08:00 TYPE 2 DIABETES MELLITUS WITHOUT [facility] COMPLICATIONS 2015-03-12 08:00 UNSPECIFIED [facility] 2015-04-12 08:00 UNSPECIFIED [facility] 2015-04-12 08:00 OTHER ALF (CURRENT) DRUG [facility] THERAPY 2015-05-25 08:00 UNSPECIFIED [facility] 2015-05-25 08:00 OTHER BIG DATA ENGINEER (CURRENT) DRUG [facility] THERAPY 2015-05-28 15:34 UNSPECIFIED [facility] 2015-05-28 15:34 OTHER ALF (CURRENT) DRUG [facility] THERAPY 2015-06-10 13:55 UNSPECIFIED [facility] 2015-06-10 13:55 OTHER BIG DATA ENGINEER (CURRENT) DRUG [facility] THERAPY 2015-06-22 08:00 UNSPECIFIED [facility] 2015-06-22 08:00 OTHER BIG DATA ENGINEER (CURRENT) DRUG [facility] THERAPY 2015-07-12 08:00 UNSPECIFIED [facility] 2015-07-12 08:00 OTHER BIG DATA ENGINEER (CURRENT) DRUG [facility] THERAPY 2015-07-12 13:26 TYPE 2 DIABETES MELLITUS WITHOUT [facility] COMPLICATIONS 2015-07-12 13:26 UNSPECIFIED [facility] 2015-07-12 13:[address] [facility] 2015-07-12 13:26 OTHER BIG DATA ENGINEER (CURRENT) DRUG [facility] THERAPY 2015-08-02 15:26 UNSPECIFIED [facility] 2015-08-02 15:26 OTHER BIG DATA ENGINEER (CURRENT) DRUG [facility] THERAPY 2015-09-06 07:59 UNSPECIFIED [facility] 2015-09-06 07:59 OTHER BIG DATA ENGINEER (CURRENT) DRUG [facility] THERAPY 2015-10-28 13:59 UNSPECIFIED [facility] 2015-10-28 13:59 ALF (CURRENT) USE OF [facility] ANTICOAGULANTS 2015-11-22 11:03 TYPE 2 DIABETES MELLITUS WITHOUT [facility] COMPLICATIONS 2015-11-22 11:03 UNSPECIFIED [facility] 2015-11-22 11:03 OTHER BIG DATA ENGINEER (CURRENT) DRUG [facility] THERAPY 2015-11-29 09:19 UNSPECIFIED [facility] 2015-11-29 09:19 OTHER BIG DATA ENGINEER (CURRENT) DRUG [facility] THERAPY 2015-12-01 00:00:00 Diabetes mellitus with All neurological manifestations, type II or unspecified type, not stated as uncontrolled 2015-12-01 00:00:00 Congestive heart failure, All unspecified 2015-12-01 00:00:00 Type 2 diabetes mellitus with All diabetic neuropathy, unspecified 2015-12-01 00:00:00 Sleep apnea, unspecified All 2015-12-01 00:00:00 Unspecified atrial fibrillation All 2015-12-01 00:00:00 Gastro-esophageal reflux disease All without esophagitis 2015-12-01 00:00:00 Hypertensive disorder All 2015-12-01 00:00:00 Congestive heart failure All 2015-12-01 00:00[facility]00 [facility] 2015[facility]01 00:00:00 Type 2 diabetes mellitus [facility] 2015-12-01 00:00:00 [facility] 2015-12[facility]01 00:00:00 Essential (primary) hypertension id beyCount Includes [facility] Care [facility] 2015-12-01 00:00:00 Gastroesophageal reflux disease idb [facility] 2015-12-01 00:00:00 Type 2 diabetes mellitus [facility] 2015-12-01 00:00:00 Ulcer of lower extremity [facility] 2015-12-01 00:00:00 [facility], type II or Chey unspecified type, not stated as uncontrolled 2015-12-01 00:00:00 [facility] 2015-12[facility]01 00:00[facility]00 [facility] lower limb, [facility]00 [facility] 2015-12[facility]01 00:00:00 Heart failure, unspecified [facility] 2015-12-01 00:00:00 Non-pressure chronic ulcer of [facility] unspecified part of unspecified [facility] lower leg with unspecified severity 2015-12-01 00:00:00 [facility] 2015-12-01 00:00:00 Diabetic peripheral neuropathy [facility] Chey 2015-12-01 00:00:00 Ulcer of foot [facility] Chey 2015-12-27 14:49 UNSPECIFIED [facility] 2015-12-27 14:49 OTHER ALF (CURRENT) DRUG [facility] THERAPY 2016-01-24 08:00 UNSPECIFIED [facility] 2016-01-24 08:00 OTHER BIG DATA ENGINEER (CURRENT) DRUG [facility] THERAPY 2016-02-01 00:00:00 Need for prophylactic vaccination [facility] Care and inoculation against [facility] unspecified single disease 2016-02-01 00:00:00 Encounter for immunization [facility] 2016-02-01 00:00:00 Active immunization [facility] 2016-02-01 14:06 UNSPECIFIED [facility] 2016-02-01 14:06 OTHER BIG DATA ENGINEER (CURRENT) DRUG [facility] THERAPY 2016-02-15 08:00 UNSPECIFIED [facility] 2016-02-15 08:00 OTHER BIG DATA ENGINEER (CURRENT) DRUG [facility] THERAPY 2016-03-15 15:04 UNSPECIFIED [facility] 2016-03-15 15:04 OTHER ALF (CURRENT) DRUG [facility] THERAPY 2016-03-28 15:26 UNSPECIFIED [facility] 2016-03-28 15:26 OTHER ALF (CURRENT) DRUG [facility] THERAPY 2016-05-02 00:00 UNSPECIFIED [facility] 2016-05-02 08:00 UNSPECIFIED [facility] 2016-05-02 08:00 OTHER ALF (CURRENT) DRUG [facility] THERAPY 2016-05-29 00:00 UNSPECIFIED [facility] 2016-05-29 13:22 UNSPECIFIED [facility] 2016-05-29 13:22 OTHER ALF (CURRENT) DRUG [facility] THERAPY 2016-06-13 00:00 UNSPECIFIED [facility] 2016-06-13 15:24 UNSPECIFIED [facility] 2016-06-13 15:24 OTHER ALF (CURRENT) DRUG [facility] THERAPY 2016-06-29 00:00 UNSPECIFIED [facility] 2016-06-29 14:25 UNSPECIFIED [facility] 2016-06-29 14:25 ALF (CURRENT) USE OF [facility] ANTICOAGULANTS 2016-07-10 00:00 UNSPECIFIED [facility] 2016-07-10 00:00 OTHER ALF (CURRENT) DRUG [facility] THERAPY 2016-07-10 10:05 UNSPECIFIED [facility] 2016-07-10 10:05 OTHER ALF (CURRENT) DRUG [facility] THERAPY 2016-07-21 00:00 UNSPECIFIED [facility] 2016-07-21 13:01 UNSPECIFIED [facility] 2016-07-21 13:01 OTHER ALF (CURRENT) DRUG [facility] THERAPY 2016-08-03 00:00 UNSPECIFIED [facility] 2016-08-03 00:00:00 Health-related behavior All 2016-08-03 00:00:00 Exercise All 2016-08-03 00:00:00 XR LUMBAR SPINE 2 OR 3 VIEW [facility] 2016-08-03 00:00:00 Alcohol intake [facility] 2016-08-03 00:00:00 Tobacco use and exposure [facility] 2016-08-03 00:00:00 Details of drug misuse behavior [facility] 2016-08-03 00:00:00 Low back pain [facility] 2016-08-03 00:00:00 Former smoker [facility] 2016-08-03 00:00:00 Lumbago [facility] 2016-08-03 00:00:00 Alcohol use [facility] 2016-08-03 14:54 UNSPECIFIED [facility] 2016-08-03 14:54 OTHER ALF (CURRENT) DRUG [facility] THERAPY 2016-08-03 16:08 OTHER FORMS OF SCOLIOSIS, [facility] THORACOLUMBAR REGION 2016-08-03 16:08 SPONDYLOLISTHESIS, LUMBOSACRAL [facility] REGION 2016-08-03 16:[address] [facility] DEGENERATION, LUMBOSACRAL REGION 2016-08-03 16:08 ACQUIRED DEFORMITY OF PELVIS [facility] 2016-08-07 00:00:00 Fall (on) (from) unspecified [facility] and steps, initial [facility] encounter 2016-08-07 00:00:00 Accidental fall on or from other [facility] Primary Care stairs or steps [facility] 2016-08-10 00:00:00 Other and unspecified All hyperlipidemia 2016-08-10 00:00:00 Tobacco use and exposure All 2016-08-10 00:00:00 Details of drug misuse behavior All 2016-08-10 00:00[facility]00[facility]00 [facility]1C [facility] 2016-08-10 00:00:00 CBCDP [facility] 2016-08-10 00:00:00 [facility] 2016-08-10 00:00:00 [facility] 2016-08-10 00:00:00 [facility] 2016-08[facility]:00[facility]00 [facility] 2016-08-10 00:00:00 TSH [facility] 2016-08-10 00:00:00 Hyperlipidemia, unspecified [facility] 2016-08-10 00:00:00 Exercise [facility] 2016-08-10 00:00:00 Former smoker [facility] 2016-08-14 00:00:00 Acquired spondylolisthesis [facility] Primary Care [facility] 2016-08-14 00:00:00 Personal history of (healed) [facility] Primary [facility] traumatic fracture [facility] 2016-08-14 00:00:00 Spondylolisthesis, lumbosacral [facility] Care region [facility] 2016-08-14 00:00:00 Spondylolisthesis [facility] 2016-08-14 00:00:00 H/O: fracture [facility] 2016-08-14 00:00:00 Personal history of traumatic [facility] fracture [facility] 2016-08-15 00:00 UNSPECIFIED [facility] 2016-08-15 08:00 TYPE 2 DIABETES MELLITUS WITHOUT [facility] COMPLICATIONS 2016-08-15 08:00 HYPERLIPIDEMIA, UNSPECIFIED [facility] 2016-08-15 08:00 UNSPECIFIED [facility] 2016-08-15 08:00 HEART FAILURE, UNSPECIFIED [facility] 2016-08-15 08:00 OTHER BIG DATA ENGINEER (CURRENT) DRUG [facility] THERAPY 2016-08-18 00:00:00 FIT Test All 2016-08-18 00:00:00 Tobacco use and exposure All 2016-08-18 00:00:00 Melena [facility] 2016-08-18 00:00:00 Exercise [facility] 2016-08-18 00:00:00 Alcohol intake [facility] 2016-08-18 00:00:00 Details of drug misuse behavior [facility] 2016-08-18 00:00:00 Opthalmology Consultation [facility] 2016-08-18 00:00:00 Current every day smoker [facility] 2016-08-18 00:00:00 Blood in stool [facility] 2016-08-18 00:00:00 Health-related behavior [facility] 2016-08-18 00:00:00 Hematochezia [facility] 2016-09-01 00:00:00 FIT Test All 2016-09-01 00:00:00 Health-related behavior All 2016-09-01 00:00:00 Alcohol intake [facility] 2016-09-01 00:00:00 Tobacco use and exposure [facility] 2016-09-01 00:00:00 Former smoker [facility] 2016-09-01 00:00:00 Culture, routine - No blood, [facility] urine, stool [facility] 2016-09-01 00:00:00 Exercise [facility] 2016-09-01 00:00:00 Details of drug misuse behavior [facility] 2016-09-01 00:00:00 Alcohol use [facility] 2016-09-01 11:56 NON-PRS CHRONIC ULC UNSP [facility] UN[facility] LOW LEG W UNSP SEVERITY 2016-09-04 00:00 UNSPECIFIED [facility] 2016-09-04 08:00 UNSPECIFIED [facility] 2016-09-04 08:00 MELENA [facility] 2016-09-04 08:00 OTHER BIG DATA ENGINEER (CURRENT) DRUG [facility] THERAPY 2016-09-06 00:00:00 Wound Care [facility] 2016-09-15 00:00:00 Type 2 diabetes mellitus with All other skin ulcer 2016-09-15 00:00:00 Cellulitis, unspecified All 2016-09-15 00:00:00 Exercise All 2016-09-15 00:00:00 Former smoker All 2016-09-15 00:00:[address] Diabetes mellitus with [facility] neurological manifestations, type [facility] II or unspecified type, uncontrolled 2016-09-15 00:00:00 Cellulitis and abscess of [facility] Primary Care unspecified sites [facility] 2016-09-15 00:00:00 Cellulitis [facility] 2016-09-15 00:00:00 Peripheral neuropathy due to type i [facility] 2 diabetes mellitus [facility] 2016-09-15 00:00:00 Health-related behavior [facility] Care [facility] 2016-09-15 00:00:00 Alcohol use [facility] 2016-09-15 00:00:00 Diabetes mellitus with other [facility] Primary Care specified manifestations, type II [facility]y or unspecified type, not stated as uncontrolled 2016-09-15 00:00:00 Diabetic peripheral neuropathy [facility] Care associated with type 2 diabetes [facility]y mellitus 2016-09-15 00:00:00 Peripheral neuropathy with type 2 i [facility] Primary Care diabetes [facility] 2016-09-15 00:00:00 Tobacco use and exposure [facility] 2016-09-15 00:00:00 Type 2 diabetes mellitus with [facility] diabetic neuropathy, unspecified [facility] 2016-09-15 00:00:00 Alcohol intake [facility] 2016-09-15 00:00:00 Type 2 diabetes mellitus with [facility] ulcer [facility] 2016-09-15 00:00:00 Details of drug misuse behavior [facility] Primary Care [facility] 2016-09-19 00:00:00 Methicillin susceptible All Staphylococcus aureus infection, unspecified site 2016-09-19 00:00:00 Cellulitis of right lower limb All 2016-09-19 00:00:00 Cellulitis of lower limb [facility] Primary Care [facility] 2016-09-19 00:00:00 Cellulitis of left lower limb [facility] 2016-09-19 00:00:[address] [facility] Care Staphylococcus aureus infection in Gold e conditions classified elsewhere and of unspecified site 2016-09-19 00:00:00 Infection by methicillin [facility] Primary Care sensitive Staphylococcus aureus [facility] 2016-09-20 13:17 TYPE 2 DIABETES MELLITUS WITH OTH [facility] CIRCULATORY COMPLICATIONS 2016-09-21 00:00 UNSPECIFIED [facility] 2016-09-21 06:54 UNSPECIFIED [facility] 2016-09-21 06:54 OTHER ALF (CURRENT) DRUG [facility] THERAPY 2016-09-26 00:00 UNSPECIFIED [facility] 2016-09-26 08:00 UNSPECIFIED [facility] 2016-09-26 08:00 OTHER BIG DATA ENGINEER (CURRENT) DRUG [facility] THERAPY 2016-10-09 00:00 UNSPECIFIED [facility] 2016-10-09 08:00 UNSPECIFIED [facility] 2016-10-23 00:00 UNSPECIFIED [facility] 2016-10-23 15:07 UNSPECIFIED [facility] 2016-11-10 00:00 UNSPECIFIED [facility] 2016-11-10 13:21 UNSPECIFIED [facility] 2016-11-10 13:21 OTHER BIG DATA ENGINEER (CURRENT) DRUG [facility] THERAPY 2016-11-20 00:00 TYPE 2 DIABETES MELLITUS WITHOUT [facility] COMPLICATIONS 2016-11-20 00:00:00 HGBA1C [facility] 2016-11-20 14:29 TYPE 2 DIABETES MELLITUS WITHOUT [facility] COMPLICATIONS 2016-11-30 00:00 U[facility]PECIFIED [facility] 2016-11-30 14:24 U[facility]PECIFIED [facility] 2016-11-30 14:24 OTHER ALF (CURRENT) DRUG [facility] THERAPY 2016-12-06 09:02 UNSPECIFIED [facility] 2016-12-07 00:00:00 Tobacco use and exposure All 2016-12-07 00:00:00 Alcohol use All 2016-12-07 00:00:00 Exercise [facility] 2016-12-07 00:00:00 Former smoker [facility] 2016-12-07 00:00:00 Alcohol intake [facility] 2016-12-07 00:00:00 Details of drug misuse behavior [facility] 2016-12-07 00:00:00 Health-related behavior [facility] 2016-12-18 00:00 UNSPECIFIED [facility] 2016-12-18 14:34 UNSPECIFIED [facility] 2017-01-02 00:00 UNSPECIFIED [facility] 2017-01-02 13:57 UNSPECIFIED [facility] 2017-01-02 13:57 OTHER ALF (CURRENT) DRUG [facility] THERAPY 2017-01-10 00:00 UNSPECIFIED [facility] 2017-01-10 15:30 UNSPECIFIED [facility] 2017-01-10 15:30 OTHER BIG DATA ENGINEER (CURRENT) DRUG [facility] THERAPY 2017-01-25 00:00 UNSPECIFIED [facility] 2017-01-25 14:29 UNSPECIFIED [facility] 2017-01-25 14:29 OTHER BIG DATA ENGINEER (CURRENT) DRUG [facility] THERAPY 2017-01-31 00:00 UNSPECIFIED [facility] 2017-01-31 14:43 UNSPECIFIED [facility] 2017-01-31 14:43 OTHER ALF (CURRENT) DRUG [facility] THERAPY 2017-02-15 08:00 UNSPECIFIED [facility] 2017-02-15 08:00 OTHER BIG DATA ENGINEER (CURRENT) DRUG [facility] THERAPY 2017-03-01 15:03 UNSPECIFIED [facility] 2017-03-01 15:03 OTHER ALF (CURRENT) DRUG [facility] THERAPY 2017-03-09 00:00 UNSPECIFIED [facility] 2017-03-09 00:00:00 HGBA1C [facility] 2017-03-09 13:41 UNSPECIFIED [facility] 2017-03-09 13:41 OTHER ALF (CURRENT) DRUG [facility] THERAPY 2017-03-16 00:00 UNSPECIFIED [facility] 2017-03-16 08:00 UNSPECIFIED [facility] 2017-03-16 08:00 OTHER ALF (CURRENT) DRUG [facility] THERAPY 2017-03-30 00:00 UNSPECIFIED [facility] 2017-03-30 14:19 UNSPECIFIED [facility] 2017-03-30 14:19 OTHER ALF (CURRENT) DRUG [facility] THERAPY 2017-04-19 00:00 TYPE 2 DIABETES MELLITUS WITH [facility] DIABETIC NEUROPATHY, [facility] 2017-04-19 00:00:00 Exercise All 2017-04-19 00:00:00 Former smoker All 2017-04-19 00:00:00 Alcohol intake [facility] 2017-04-19 00:00:00 Details of drug misuse behavior [facility] 2017-04-19 00:00:00 Health-related behavior [facility] 2017-04-19 00:00:00 BMP [facility] 2017-04-19 00:00:00 Alcohol use [facility] 2017-04-19 00:00:00 Chronic kidney disease, [facility] unspecified [facility] 2017-04-19 00:00:00 Tobacco use and exposure [facility] 2017-04-19 00:00:00 Chronic renal failure [facility] 2017-04-19 08:00 TYPE 2 DIABETES MELLITUS WITH [facility] DIABETIC NEUROPATHY, [facility] 2017-04-19 08:00 UNSPECIFIED [facility] 2017-04-19 08:00 CHRONIC KIDNEY DISEASE, [facility] UNSPECIFIED 2017-04-19 08:00 OTHER ALF (CURRENT) DRUG [facility] THERAPY 2017-05-10 00:00:00 Alcohol intake All 2017-05-10 00:00:00 Health-related behavior All 2017-05-10 00:00:00 Exercise All 2017-05-10 00:00:00 Tobacco use and exposure [facility] 2017-05-10 00:00:00 Podiatry Consultation [facility] 2017-05-10 00:00:00 Details of drug misuse behavior [facility] 2017-05-10 00:00:00 Wound Care [facility] 2017-05-10 00:00:00 Former smoker [facility] 2017-05-10 00:00:00 Alcohol use [facility] 2017-05-10 08:00 UNSPECIFIED [facility] 2017-05-10 08:00 OTHER BIG DATA ENGINEER (CURRENT) DRUG [facility] THERAPY 2017-05-25 00:00 UNSPECIFIED [facility] 2017-05-25 13:45 UNSPECIFIED [facility] 2017-05-25 13:45 OTHER BIG DATA ENGINEER (CURRENT) DRUG [facility] THERAPY 2017-07-02 00:00 OTHER BIG DATA ENGINEER (CURRENT) DRUG [facility] THERAPY 2017-07-02 14:17 UNSPECIFIED [facility] 2017-07-02 14:17 OTHER ALF (CURRENT) DRUG [facility] THERAPY 2017-08-08 00:00 UNSPECIFIED [facility] 2017-08-08 00:00:00 BMP All 2017-08-08 00:00:00 MICROALBUMIN-RANDOM URINE All 2017-08-08 00:00:00 HGBA1C [facility] 2017-08-08 08:00 UNSPECIFIED [facility] 2017-08-08 08:00 OTHER ALF (CURRENT) DRUG [facility] THERAPY 2017-08-15 00:00 UNSPECIFIED [facility] 2017-08-15 09:33 UNSPECIFIED [facility] 2017-08-15 09:33 OTHER ALF (CURRENT) DRUG [facility] THERAPY 2017-08-16 00:00:00 Alcohol intake All 2017-08-16 00:00:00 Details of drug misuse behavior All 2017-08-16 00:00:00 Exercise [facility] 2017-08-16 00:00:00 Alcohol use [facility] 2017-08-16 00:00:00 Former smoker [facility] 2017-08-16 00:00:00 Health-related behavior [facility] 2017-08-16 00:00:00 Tobacco use and exposure [facility] 2017-08-21 00:00 TYPE 2 DIABETES MELLITUS WITH [facility] DIABETIC NEUROPATHY, [facility] 2017-08-21 08:47 TYPE 2 DIABETES MELLITUS WITH [facility] DIABETIC NEUROPATHY, [facility] 2017-08-21 08:47 UNSPECIFIED [facility] 2017-08-21 08:47 OTHER BIG DATA ENGINEER (CURRENT) DRUG [facility] THERAPY 2017-08-28 00:00 UNSPECIFIED [facility] 2017-08-28 08:00 UNSPECIFIED [facility] 2017-08-28 08:00 OTHER ALF (CURRENT) DRUG [facility] THERAPY 2017-09-17 00:00 UNSPECIFIED [facility] 2017-09-17 11:37 UNSPECIFIED [facility] 2017-09-17 11:37 OTHER BIG DATA ENGINEER (CURRENT) DRUG [facility] THERAPY 2017-10-01 00:00 UNSPECIFIED [facility] 2017-10-01 13:29 UNSPECIFIED [facility] 2017-10-01 13:29 OTHER BIG DATA ENGINEER (CURRENT) DRUG [facility] THERAPY 2017-10-03 00:00 UNSPECIFIED [facility] 2017-10-03 08:00 UNSPECIFIED [facility] 2017-10-03 08:00 OTHER ALF (CURRENT) DRUG [facility] THERAPY 2017-10-09 14:35 UNSPECIFIED [facility] 2017-10-09 14:35 OTHER ALF (CURRENT) DRUG [facility] THERAPY 2017-10-11 00:00 UNSPECIFIED [facility] 2017-10-11 14:03 UNSPECIFIED [facility] 2017-10-11 14:03 OTHER ALF (CURRENT) DRUG [facility] THERAPY 2017-10-22 00:00 UNSPECIFIED [facility] 2017-10-22 14:39 UNSPECIFIED [facility] 2017-10-22 14:39 OTHER BIG DATA ENGINEER (CURRENT) DRUG [facility] THERAPY 2017-11-02 00:00 UNSPECIFIED [facility] 2017-11-02 13:26 UNSPECIFIED [facility] 2017-11-02 13:26 OTHER ALF (CURRENT) DRUG [facility] THERAPY 2017-11-13 00:00 UNSPECIFIED [facility] 2017-11-13 00:00:00 Alcohol intake All 2017-11-13 00:00:00 Health-related behavior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 2016-09-15 00:00:00 null [facility] 2016-09-15 00:00:00 null [facility] 2016-09-15 00:00:00 SULFAMETHOXAZOLE-TRIMETHOPRIM [facility] 2016-09-15 00:00:00 SULFAMETHOXAZOLE-TRIMETHOPRIM [facility] 2016-09-15 00:00:00 SULFAMETHOXAZOLE-TRIMETHOPRIM [facility] 2016-09-15 00:00:00 SULFAMETHOXAZOLE-TRIMETHOPRIM [facility] 2016-09-15 00:00:00 [facility] 2016-09-15 00:00:00 [facility] 2016-09-15 00:00:00 SULFAMETHOXAZOLE-TRIMETHOPRIM [facility] 2016-09-15 00:00:00 SULFAMETHOXAZOLE-TRIMETHOPRIM [facility] 2016-09-15 00:00:00 [facility] 2016-09-15 00:00:00 [facility] 2016-09-15 00:00:00 SULFAMETHOXAZOLE-TRIMETHOPRIM [facility] 2016-09-15 00:00:00 SULFAMETHOXAZOLE-TRIMETHOPRIM [facility] 2017-01-31 00:00:00 null All 2017-01-31 00:00:00 null All 2017-01-31 00:00:00 null [facility] 2017-01-31 00:00:00 null [facility] 2017-01-31 00:00:00 null [facility] 2017-01-31 00:00:00 null [facility] 2017-01-31 00:00:00 null [facility] 2017-01-31 00:00:00 null [facility] 2017-01-31 00:00:00 null [facility] 2017-01-31 00:00:00 null [facility] 2017-12-04 00:00:00 null All 2017-12-04 00:00:00 null All 2017-12-04 00:00:00 null All 2017-12-04 00:00:00 null All 2017-12-04 00:00:00 null All 2017-12-04 00:00:00 null All 2017-12-04 00:00:00 LANCETS All 2017-12-04 00:00:00 GLUCOSE BLOOD All 2017-12-04 00:00:00 BLOOD GLUCOSE MONITORING SUPPL All 2017-12-04 00:00:00 null [facility] 2017-12-04 00:00:00 null [facility] C 2017-12-04 00:00:00 null [facility] 2017-12-04 00:00:00 null [facility] C 2017-12-04 00:00:00 null [facility] C 2017-12-04 00:00:00 null [facility] 2017-12-04 00:00:00 LANCETS [facility] 2017-12-04 00:00:00 GLUCOSE BLOOD [facility] 2017-12-04 00:00:00 BLOOD GLUCOSE MONITORING SUPPL [facility] 2017-12-04 00:00:00 null [facility] 2017-12-04 00:00:00 null [facility] 2017-12-04 00:00:00 null [facility] 2017-12-04 00:00:00 null [facility] 2017-12-04 00:00:00 null [facility] 2017-12-04 00:00:00 null [facility] 2017-12-04 00:00:00 LANCETS [facility] 2017-12-04 00:00:00 GLUCOSE BLOOD [facility] 2017-12-04 00:00:00 BLOOD GLUCOSE MONITORING SUPPL [facility] 2017-12-04 00[facility]00:00 [facility]-04 00:00:00 [facility] 2017-12-04 00:00:00 [facility] [place] 2017-12-04 00:00:00 [facility] 2017-12-04 00:00[facility] 2017-12-04 00:00:00 [facility] [place] 2017-12-04 00[facility]00[facility] 2017-12-04 00:00:00 GLUCOSE BLOOD [facility] 2017-12-04 00:00:00 BLOOD GLUCOSE MONITORING SUPPL [facility] 2018-01-21 00:00:00 null All 2018-01-21 00:00:00 null All 2018-01-21 00:00:00 null All 2018-01-21 00:00:00 null All 2018-01-21 00:00:00 null All 2018-01-21 00:00:00 null All 2018-01-21 00:00:00 WARFARIN SODIUM All 2018-01-21 00:00:00 METOPROLOL TARTRATE All 2018-01-21 00:00:00 GLIPIZIDE All 2018-01-21 00:00:00 GLIPIZIDE All 2018-01-21 00:00:00 WARFARIN SODIUM All 2018-01-21 00:00:00 METOPROLOL TARTRATE All 2018-01-21 00:00:00 [facility] 2018-01-21 00:00[facility] 2018-01-21 00:00:00 [facility] 2018-01-21 00:00[facility] 2018-01-21 00:00:00 [facility] 2018-01-21 00:00:00 null [facility] 2018-01-21 00:00:00 WARFARIN SODIUM [facility] 2018-01-21 00:00:00 METOPROLOL TARTRATE [facility] 2018-01-21 00:00:00 GLIPIZIDE [facility] 2018-01-21 00:00:00 GLIPIZIDE [facility] 2018-01-21 00:00:00 WARFARIN SODIUM [facility] 2018-01-21 00:00:00 METOPROLOL TARTRATE [facility] 2018-01-21 00:00:00 null [facility] 2018-01-21 00:00:00 null [facility] 2018-01-21 00:00:00 null [facility] 2018-01-21 00:00:00 null [facility] 2018-01-21 00:00:00 null [facility] 2018-01-21 00:00:00 null [facility] 2018-01-21 00:00:00 WARFARIN SODIUM [facility] 2018-01-21 00:00:00 METOPROLOL TARTRATE [facility] 2018-01-21 00:00:00 GLIPIZIDE [facility] 2018-01-21 00:00:00 GLIPIZIDE [facility] 2018-01-21 00:00:00 WARFARIN SODIUM [facility] 2018-01-21 00:00:00 METOPROLOL TARTRATE [facility] 2018-01-21 00:00:00 null [facility] 2018-01-21 00:00:00 null [facility] 2018-01-21 00:00:00 null [facility] 2018-01-21 00:00:00 null [facility] 2018-01-21 00:00:00 null [facility] 2018-01-21 00:00:00 [facility] 2018-01-21 00:00:00 WARFARIN SODIUM [facility] 2018-01-21 00:00:00 MET[facility]OL [facility]TRATE [facility] 2018-01-21 00:00:00 GLIPIZIDE [facility] 2018-01-21 00:00:00 GLIPIZIDE [facility] 2018-01-21 00:00:00 WARFARIN SODIUM [facility] 2018-01-21 00:00:00 [facility]OL [facility] 2018-[facility]:00:00 null All 2018-01-28 00:00:00 null All 2018-01-28 00:00:00 PRAVASTATIN SODIUM All 2018-01-28 00:00:00 PRAVASTATIN SODIUM All 2018-01-28 00:00:00 null [facility] 2018-01-28 00:00:00 [facility] 2018-01-28 00:00:00 PRAVASTATIN SODIUM [facility] 2018-01-28 00:00:00 PRAVASTATIN SODIUM [facility] 2018-01-28 00:00:00 null [facility] 2018-01-28 00:00:00 null [facility] 2018-01-28 00:00:00 PRAVASTATIN SODIUM [facility] 2018-01-28 00:00:00 PRAVASTATIN SODIUM [facility] 2018-01-28 00:00:00 [facility] 2018-01-28 00:00:00 null [facility] 2018-01-28 00:00:00 PRAVASTATIN SODIUM [facility] 2018-01-28 00:00:00 PRAVASTATIN SODIUM [facility] 2018-02-05 00:00:00 null All 2018-02-05 00:00:00 null All 2018-02-05 00:00:00 null [facility] 2018-02-05 00:00:00 null [facility] 2018-02-05 00:00:00 null [facility] 2018-02-05 00:00:00 null [facility] 2018-02-05 00:00:00 null [facility] 2018-02-05 00:00:00 null [facility] 2018-02-12 00:00:00 null All 2018-02-12 00:00:00 null All 2018-02-12 00:00:00 FUROSEMIDE All 2018-02-12 00:00:00 FUROSEMIDE All 2018-02-12 00:00:00 null [facility] 2018-02-12 00:00:00 null [facility] 2018-02-12 00:00:00 FUROSEMIDE [facility] 2018-02-12 00:00:00 FUROSEMIDE [facility] 2018-02-12 00:00:00 null [facility] 2018-02-12 00:00:00 null [facility] 2018-02-12 00:00:00 FUROSEMIDE [facility] 2018-02-12 00:00:00 FUROSEMIDE [facility] 2018-02-12 00:00:00 null [facility] 2018-02-12 00:00:00 null [facility] 2018-02-12 00:00:00 FUROSEMIDE [facility] 2018-02-12 00:00:00 FUROSEMIDE [facility] 2018-03-05 00:00:00 null All 2018-03-05 00:00:00 null All 2018-03-05 00:00:00 GLIPIZIDE All 2018-03-05 00:00:00 GLIPIZIDE All 2018-03-05 00:00:00 null [facility] 2018-03-05 00:00:00 null [facility] 2018-03-05 00:00:00 GLIPIZIDE [facility] 2018-03-05 00:00:00 GLIPIZIDE [facility] 2018-03-05 00:00:00 null [facility] 2018-03-05 00:00:00 null [facility] 2018-03-05 00:00:00 GLIPIZIDE [facility] 2018-03-05 00:00:00 GLIPIZIDE [facility] 2018-03-05 00:00:00 null [facility] 2018-03-05 00:00:00 null [facility] 2018-03-05 00:00:00 GLIPIZIDE [facility] 2018-03-05 00:00:00 GLIPIZIDE [facility] 2018-04-24 00:00:00 null All 2018-04-24 00:00:00 null All 2018-04-24 00:00:00 null All 2018-04-24 00:00:00 null All 2018-04-24 00:00:00 WARFARIN SODIUM All 2018-04-24 00:00:00 LISINOPRIL All 2018-04-24 00:00:00 LISINOPRIL All 2018-04-24 00:00:00 WARFARIN SODIUM All 2018-04-24 00:00:00 null [facility] 2018-04-24 00:00:00 null [facility] 2018-04-24 00:00:00 null [facility] 2018-04-24 00:00:00 null [facility] 2018-04-24 00:00:00 WARFARIN SODIUM [facility] 2018-04-24 00:00:00 LISINOPRIL [facility] 2018-04-24 00:00:00 LISINOPRIL [facility] 2018-04-24 00:00:00 WARFARIN SODIUM [facility] 2018-04-24 00:00:00 null [facility] 2018-04-24 00:00:00 null [facility] 2018-04-24 00:00:00 null [facility] 2018-04-24 00:00:00 null [facility] 2018-04-24 00:00:00 WARFARIN SODIUM [facility] 2018-04-24 00:00:00 LISINOPRIL [facility] 2018-04-24 00:00:00 LISINOPRIL [facility] 2018-04-24 00:00:00 WARFARIN SODIUM [facility] 2018-04-24 00:00:00 null [facility] 2018-04-24 00:00:00 null [facility] 2018-04-24 00:00:00 null [facility] 2018-04-24 00:00:00 null [facility] 2018-04-24 00:00:00 WARFARIN SODIUM [facility] 2018-04-24 00:00:00 LISINOPRIL [facility] 2018-04-24 00:00:00 LISINOPRIL [facility] 2018-04-24 00:00:00 WARFARIN SODIUM [facility] 2018-05-27 00:00:00 null All 2018-05-27 00:00:00 null All 2018-05-27 00:00:00 PRAVASTATIN SODIUM All 2018-05-27 00:00:00 PRAVASTATIN SODIUM All 2018-05-27 00:00:00 null [facility] 2018-05-27 00:00:00 null [facility] 2018-05-27 00:00:00 PRAVASTATIN SODIUM [facility] 2018-05-27 00:00:00 PRAVASTATIN SODIUM [facility] 2018-05-27 00:00:00 null [facility] 2018-05-27 00:00:00 null [facility] 2018-05-27 00:00:00 PRAVASTATIN SODIUM [facility] 2018-05-27 00:00:00 PRAVASTATIN SODIUM [facility] 2018-05-27 00:00:00 null [facility] 2018-05-27 00:00:00 null [facility] 2018-05-27 00:00:00 PRAVASTATIN SODIUM [facility] 2018-05-27 00:00:00 PRAVASTATIN SODIUM [facility] 2018-09-07 00:00:00 null All 2018-09-07 00:00:00 null All 2018-09-07 00:00:00 null All 2018-09-07 00:00:00 null All 2018-09-07 00:00:00 TRIAMCINOLONE ACETONIDE All 2018-09-07 00:00:00 TRIAMCINOLONE ACETONIDE All 2018-09-07 00:00:00 TRIAMCINOLONE ACETONIDE All 2018-09-07 00:00:00 TRIAMCINOLONE ACETONIDE All 2018-09-07 00:00:00 null [facility] 2018-09-07 00:00:00 null [facility] 2018-09-07 00:00:00 null [facility] 2018-09-07 00:00:00 null [facility] 2018-09-07 00:00:00 TRIAMCINOLONE ACETONIDE [facility] 2018-09-07 00:00:00 TRIAMCINOLONE ACETONIDE [facility] 2018-09-07 00:00:00 TRIAMCINOLONE ACETONIDE [facility] 2018-09-07 00:00:00 [facility] 2018-09-07 00:00:00 null [facility] 2018-09-07 00:00:00 null [facility] 2018-09-07 00:00:00 null [facility] 2018-09-07 00:00:00 null [facility] 2018-09-07 00:00:00 [facility]OLONE [facility]IDE [facility] 2018-09-07 00:00:00 TRIAMCINOLONE ACETONIDE [facility] 2018-09-07 00:00:00 TRIAMCINOLONE ACETONIDE [facility] 2018-09-07 00:00:00 TRIAMCINOLONE ACETONIDE [facility] 2018-09-07 00:00:00 null [facility] 2018-09-07 00:00:00 null [facility] 2018-09-07 00:00:00 null [facility] 2018-09-07 00:00:00 null [facility] 2018-09-07 00:00:00 TRIAMCINOLONE ACETONIDE [facility] 2018-09-07 00:00:00 [facility]OL[facility] AC[facility]IDE [facility] 2018-09-07 00:00:00 [facility]AMCINOLONE ACETONIDE [facility] 2018-09-07 00:00:00 TRIAMCINOLONE ACETONIDE [facility] 2018-11-01 00:00:00 null All 2018-11-01 00:00:00 null All 2018-11-01 00:00:00 null All 2018-11-01 00:00:00 null All 2018-11-01 00:00:00 WARFARIN SODIUM All 2018-11-01 00:00:00 WARFARIN SODIUM All 2018-11-01 00:00:00 WARFARIN SODIUM All 2018-11-01 00:00:00 WARFARIN SODIUM All 2018-11-01 00:00:00 null [facility] 2018-11-01 00:00:00 null [facility] 2018-11-01 00:00:00 null [facility] 2018-11-01 00:00:00 null [facility] 2018-11-01 00:00:00 WARFARIN SODIUM [facility] 2018-11-01 00:00:00 WARFARIN SODIUM [facility] 2018-11-01 00:00:00 WARFARIN SODIUM [facility] 2018-11-01 00:00:00 WARFARIN SODIUM [facility] 2018-11-01 00:00:00 null [facility] 2018-11-01 00:00:00 null [facility] 2018-11-01 00:00:00 null [facility] 2018-11-01 00:00:00 null [facility] 2018-11-01 00:00:00 WARFARIN SODIUM [facility] 2018-11-01 00:00:00 WARFARIN SODIUM [facility] 2018-11-01 00:00:00 WARFARIN SODIUM [facility] 2018-11-01 00:00:00 WARFARIN SODIUM [facility] 2018-11-01 00:00:00 null [facility] 2018-11-01 00:00:00 null [facility] 2018-11-01 00:00:00 null [facility] 2018-11-01 00:00:00 null [facility] 2018-11-01 00:00:00 WARFARIN SODIUM [facility] 2018-11-01 00:00:00 WARFARIN SODIUM [facility] 2018-11-01 00:00:00 WARFARIN SODIUM [facility] 2018-11-01 00:00:00 WARFARIN SODIUM [facility] 2018-12-18 00:00:00 null All 2018-12-18 00:00:00 null All 2018-12-18 00:00:00 LISINOPRIL All 2018-12-18 00:00:00 LISINOPRIL All 2018-12-18 00:00:00 null [facility] 2018-12-18 00:00:00 null [facility] 2018-12-18 00:00:00 LISINOPRIL [facility] 2018-12-18 00:00:00 LISINOPRIL [facility] 2018-12-18 00:00:00 null [facility] 2018-12-18 00:00:00 null [facility] 2018-12-18 00:00:00 LISINOPRIL [facility] 2018-12-18 00:00:00 LISINOPRIL [facility] 2018-12-18 00:00:00 null [facility] 2018-12-18 00:00:00 null [facility] 2018-12-18 00:00:00 LISINOPRIL [facility] 2018-12-18 00:00:00 LISINOPRIL [facility] 2019-01-27 00:00:00 null All 2019-01-27 00:00:00 null All 2019-01-27 00:00:00 METFORMIN HCL All 2019-01-27 00:00:00 METFORMIN HCL All 2019-01-27 00:00:00 null [facility] 2019-01-27 00:00:00 null [facility] 2019-01-27 00:00:00 [facility] 2019-01-27 00:00:00 METFORMIN HCL [facility] 2019-01-27 00:00:00 [facility]-27 [facility]:00[facility] 2019-01-27 00:00:00 METFORMIN HCL [facility] 2019-01-27 00:00:00 METFORMIN HCL [facility] 2019-01-27 00:00:00 null [facility] 2019-01-27 00:00:00 [facility] 2019-01-27 00:00:00 METFORMIN HCL [facility] 2019-01-27 00:00:00 METFORMIN HCL [facility] 2019-02-28 00:00:00 null All 2019-02-28 00:00:00 null All 2019-02-28 00:00:00 null All 2019-02-28 00:00:00 null All 2019-02-28 00:00:00 null All 2019-02-28 00:00:00 null All 2019-02-28 00:00:00 PREDNISONE All 2019-02-28 00:00:00 LEVOFLOXACIN All 2019-02-28 00:00:00 ALBUTEROL SULFATE All 2019-02-28 00:00:00 LEVOFLOXACIN All 2019-02-28 00:00:00 PREDNISONE All 2019-02-28 00:00:00 ALBUTEROL SULFATE All 2019-02-28 00:00:00 null [facility] 2019-02-28 00:00:00 null [facility] 2019-02-28 00:00:00 null [facility] 2019-02-28 00:00:00 null [facility] 2019-02-28 00:00:00 null [facility] 2019-02-28 00:00:00 null [facility] 2019-02-28 00:00:00 PREDNISONE [facility] 2019-02-28 00:00:00 LEVOFLOXACIN [facility] 2019-02-28 00:00:00 ALBUTEROL SULFATE [facility] 2019-02-28 00:00:00 LEVOFLOXACIN [facility] 2019-02-28 00:00:00 PREDNISONE [facility] 2019-02-28 00:00:00 ALBUTEROL SULFATE [facility] 2019-02-28 00:00:00 null [facility] 2019-02-28 00:00:00 null [facility] 2019-02-28 00:00:00 null [facility] 2019-02-28 00:00:00 null [facility] 2019-02-28 00:00:00 null [facility] 2019-02-28 00:00:00 null [facility] 2019-02-28 00:00:00 PREDNISONE [facility] 2019-02-28 00:00:00 LEVOFLOXACIN [facility] 2019-02-28 00:00:00 ALBUTEROL SULFATE [facility] 2019-02-28 00:00:00 LEVOFLOXACIN [facility] 2019-02-28 00:00:00 PREDNISONE [facility] 2019-02-28 00:00:00 ALBUTEROL SULFATE [facility] 2019-02-28 00:00:00 null [facility] 2019-02-28 00:00:00 null [facility] 2019-02-28 00:00:00 null [facility] 2019-02-28 00:00:00 null [facility] 2019-02-28 00:00:00 null [facility] 2019-02-28 00:00:00 null [facility] 2019-02-28 00:00:00 PREDNISONE [facility] 2019-02-28 00:00:00 LEVOFLOXACIN [facility] 2019-02-28 00:00:00 ALBUTEROL SULFATE [facility] 2019-02-28 00:00:00 LEVOFLOXACIN [facility] 2019-02-28 00:00:00 PREDNISONE [facility] 2019-02-28 00:00:00 ALBUTEROL SULFATE [facility] 2019-03-03 00:00:00 null All 2019-03-03 00:00:00 null All 2019-03-03 00:00:00 null All 2019-03-03 00:00:00 null All 2019-03-03 00:00:00 null All 2019-03-03 00:00:00 null All 2019-03-03 00:00:00 INSULIN GLARGINE All 2019-03-03 00:00:00 CANAGLIFLOZIN All 2019-03-03 00:00:00 INSULIN PEN NEEDLE All 2019-03-03 00:00:00 CANAGLIFLOZIN All 2019-03-03 00:00:00 INSULIN GLARGINE All 2019-03-03 00:00:00 null [facility] 2019-03-03 00:00:00 null [facility] 2019-03-03 00:00:00 null [facility] 2019-03-03 00[facility]00:00 null [facility] 2019-03-03 00:00:00 null [facility] 2019-03-03 00:00:00 null [facility] 2019-03-03 00:00:00 INSULIN GLARGINE [facility] 2019-03-03 00:00:00 CANAGLIFLOZIN [facility] 2019-03-03 00:00:00 INSULIN PEN NEEDLE [facility] 2019-03-03 00:00:00 CANAGLIFLOZIN [facility] 2019-03-03 00:00:00 INSULIN GLARGINE [facility] 2019-03-03 00:00:00 null [facility] 2019-03-03 00:00:00 null [facility] 2019-03-03 00:00:00 null [facility] 2019-03-03 00:00:00 null [facility] 2019-03-03 00:00:00 null [facility] 2019-03-03 00:00:00 null [facility] 2019-03-03 00:00:00 INSULIN GLARGINE [facility] 2019-03-03 00:00:00 CANAGLIFLOZIN [facility] 2019-03-03 00:00:00 INSULIN PEN NEEDLE [facility] 2019-03-03 00:00:00 CANAGLIFLOZIN [facility] 2019-03-03 00:00:00 INSULIN GLARGINE [facility] 2019-03-03 00:00:00 null [facility] 2019-03-03 00:00:00 null [facility] 2019-03-03 00:00:00 null [facility] 2019-03-03 00:00:00 null [facility] 2019-03-03 00:00:00 null [facility] 2019-03-03 00:00:00 null [facility] 2019-03-03 00:00:00 INSULIN GLARGINE [facility] 2019-03-03 00:00:00 CANAGLIFLOZIN [facility] 2019-03-03 00:00:00 INSULIN PEN NEEDLE [facility] 2019-03-03 00:00:00 CANAGLIFLOZIN [facility] 2019-03-03 00:00:00 INSULIN GLARGINE [facility] 2019-03-31 00:00:00 null All 2019-03-31 00:00:00 null All 2019-03-31 00:00:00 null All 2019-03-31 00:00:00 null All 2019-03-31 00:00:00 null [facility] 2019-03-31 00:00:00 null [facility] 2019-03-31 00:00:00 null [facility] 2019-03-31 00:00:00 null [facility] 2019-03-31 00:00:00 null [facility] 2019-03-31 00:00:00 null [facility] 2019-03-31 00:00:00 null [facility] 2019-03-31 00:00:00 null [facility] 2019-03-31 00:00:00 null [facility] 2019-03-31 00:00:00 null [facility] 2019-03-31 00:00:00 null [facility] 2019-03-31 00:00:00 null [facility] 2019-04-08 00:00:00 null All 2019-04-08 00:00:00 null All 2019-04-08 00:00:00 null All 2019-04-08 00:00:00 null All 2019-04-08 00:00:00 INSULIN GLARGINE All 2019-04-08 00:00:00 CANAGLIFLOZIN All 2019-04-08 00:00:00 CANAGLIFLOZIN All 2019-04-08 00:00:00 INSULIN GLARGINE All 2019-04-08 00:00:00 null [facility] 2019-04-08 00:00:00 null [facility] 2019-04-08 00:00:00 null [facility] 2019-04-08 00:00:00 null [facility] 2019-04-08 00:00:00 INSULIN GLARGINE [facility] 2019-04-08 00:00:00 CANAGLIFLOZIN [facility] 2019-04-08 00:00:00 CANAGLIFLOZIN [facility] 2019-04-08 00:00:00 INSULIN GLARGINE [facility] 2019-04-08 00:00:00 null [facility] 2019-04-08 00:00:00 null [facility] 2019-04-08 00:00:00 null [facility] 2019-04-08 00:00:00 null [facility] 2019-04-08 00:00:00 INSULIN GLARGINE [facility] 2019-04-08 00:00:00 CANAGLIFLOZIN [facility] 2019-04-08 00:00:00 CANAGLIFLOZIN [facility] 2019-04-08 00:00:00 INSULIN GLARGINE [facility] 2019-04-08 00:00:00 null [facility] 2019-04-08 00:00:00 null [facility] 2019-04-08 00:00:00 null [facility] 2019-04-08 00:00:00 null [facility] 2019-04-08 00:00:00 INSULIN GLARGINE [facility] 2019-04-08 00:00:00 CANAGLIFLOZIN [facility] 2019-04-08 00:00:00 CANAGLIFLOZIN [facility] 2019-04-08 00:00:00 INSULIN GLARGINE [facility] 2019-07-24 00:00:00 null All 2019-07-24 00:00:00 null All 2019-07-24 00:00:00 METOPROLOL TARTRATE All 2019-07-24 00:00:00 METOPROLOL TARTRATE All 2019-07-24 00:00:00 null [facility] 2019-07-24 00:00:00 null [facility] 2019-07-24 00:00:00 METOPROLOL TARTRATE [facility] 2019-07-24 00:00:00 METOPROLOL TARTRATE [facility] 2019-07-24 00:00:00 null [facility] 2019-07-24 00:00:00 null [facility] 2019-07-24 00:00:00 METOPROLOL TARTRATE [facility] 2019-07-24 00:00:00 METOPROLOL TARTRATE [facility] 2019-07-24 00:00:00 null [facility] 2019-07-24 00:00:00 null [facility] 2019-07-24 00:00:00 METOPROLOL TARTRATE [facility] 2019-07-24 00:00:00 METOPROLOL TARTRATE [facility] 2019-07-28 00:00:00 null All 2019-07-28 00:00:00 null All 2019-07-28 00:00:00 GLIPIZIDE All 2019-07-28 00:00:00 GLIPIZIDE All 2019-07-28 00:00:00 null [facility] 2019-07-28 00:00:00 null [facility] 2019-07-28 00:00:00 GLIPIZIDE [facility] 2019-07-28 00:00:00 GLIPIZIDE [facility] 2019-07-28 00:00:00 null [facility] 2019-07-28 00:00:00 null [facility] 2019-07-28 00:00:00 GLIPIZIDE [facility] 2019-07-28 00:00:00 GLIPIZIDE [facility] 2019-07-28 00:00:00 null [facility] 2019-07-28 00:00:00 null [facility] 2019-07-28 00:00:00 GLIPIZIDE [facility] 2019-07-28 00:00:00 GLIPIZIDE [facility] 2020-01-28 00:00:00 null [facility] 2020-01-28 00:00:00 null [facility] 2020-01-28 00:00:00 GLIPIZIDE [facility] 2020-01-28 00:00:00 GLIPIZIDE [facility] 2020-01-30 00:00:00 null [facility] 2020-01-30 00:00:00 null [facility] 2020-01-30 00:00:00 null [facility] 2020-01-30 00:00:00 null [facility] 2020-01-30 00:00:00 BLOOD GLUCOSE MONITORING SUPPL [facility] 2020-01-30 00:00:00 GLUCOSE BLOOD [facility] 2020-03-10 00:00:00 null [facility] 2020-03-10 00:00:00 null [facility] 2020-03-10 00:00:00 GLIPIZIDE [facility] 2020-03-10 00:00:00 GLIPIZIDE [facility] 2020-03-16 00:00:00 null [facility] 2020-03-16 00:00:00 null [facility] 2020-03-16 00:00:00 GLIPIZIDE [facility] 2020-03-16 00:00:00 GLIPIZIDE [facility] 2020-04-13 00:00:00 null [facility] 2020-04-13 00:00:00 null [facility] 2020-04-13 00:00:00 TORSEMIDE [facility] 2020-04-13 00:00:00 TORSEMIDE [facility] 2020-04-16 00:00:00 null [facility] 2020-04-16 00:00:00 null [facility] 2020-04-16 00:00:00 TORSEMIDE [facility] 2020-04-16 00:00:00 TORSEMIDE [facility] 2020-04-20 00:00:00 null [facility] 2020-04-20 00:00:00 null [facility] 2020-04-20 00:00:00 CIPROFLOXACIN HCL [facility] 2020-04-20 00:00:00 CIPROFLOXACIN HCL [facility] Procedures date description facility 2016-02-01 00:00:00 Adult Vaccine Admin, 1st Inj All date description facility 2016-02-01 00:00:00 All date description facility 2016-02-01 00:00:00 Adult Vaccine Admin, [facility]j [facility] date description facility 2016-02-01 00:00:00 [facility] date description facility 2016-02-01 00:00:00 Adult Vaccine Admin, [facility]j [facility] date description facility 2016-02-01 00:00:00 [facility] date description facility 2016-02-01 00:00:00 Adult Vaccine Admin, [facility]st Inj [facility] date description facility 2016-02-01 00:00:00 [facility] date description facility 2016-02-01 00:00:00 Adult Vaccine Admin, 1st Inj [facility] [place] date description facility 2016-02-01 00:00:00 [facility] date description facility 2016-02-09 00:00:00 Pneumovax 23 Injection Injectable 25 M CG/0.5ML All date description facility 2016-02-09 00:00:00 All date description facility 2016-02-09 00:00:00 [facility] 25 MCG/0.5ML [facility] date description facility 2016-02-09 [facility] description [facility] 2016-02-09 00:00:00 [facility] MCG/0.5[facility] [place] date description facility 2016-02-09 [facility] 2016-02-09 00:00:00 [facility] 25 MCG/0.5ML [place] date description facility 2016-02-09 00[facility] 2016-02-09 00:00:00 [facility] Injectable 25 MCG/0.5ML [place] date description facility 2016-02-09 00:00:00 [facility] date description facility 2016-08-03 00:00:00 XR LUMBAR SPINE 2 OR 3 VIEW All date description facility 2016-08-03 00:00:00 All date description facility 2016-08-03 00:00:00 XR LUMBAR SPINE 2 OR 3 VIEW [facility] date description facility 2016-08-03 00:00:00 [facility] date description facility 2016-08-03 00:00:00 XR LUMBAR SPINE 2 OR 3 VIEW [facility] date description facility 2016-08-03 00:00:00 [facility] date description facility 2016-08-03 00:00:00 XR LUMBAR SPINE 2 OR 3 VIEW [facility] date description facility 2016-08-03 00:00:00 [facility] date description facility 2016-08-03 00:00:00 XR LUMBAR SPINE 2 OR 3 VIEW [facility] date description facility 2016-08-03 00:00:00 [facility] date description facility 2016-08-10 00:00:00 LIPIDS All date description facility 2016-08-10 00:00:00 HGBA1C All date description facility 2016-08-10 00:00:00 TSH All date description facility 2016-08-10 00:00:00 CBCDP All date description facility 2016-08-10 00:00:00 All date description facility 2016-08-10 00:00:00 LIPIDS [facility] date description facility 2016-08-10 00:00:00 HGBA1C [facility] date description facility 2016-08-10 00:00:00 TSH [facility] date description facility 2016-08-10 00:00:00 CBCDP [facility] date description facility 2016-08-10 00:00:00 [facility] date description facility 2016-08-10 00:00:00 LIPIDS [facility] date description facility 2016-08-10 00:00:00 HGBA1C [facility] date description facility 2016-08-10 00:00:00 TSH [facility] date description facility 2016-08-10 00:00:00 CBCDP [facility] date description facility 2016-08-10 00:00:00 [facility] date description facility 2016-08-10 00:00:00 LIPIDS [facility] date description facility 2016-08-10 00:00:00 HGBA1C [facility] date description facility 2016-08-10 00:00:00 TSH [facility] date description facility 2016-08-10 00:00:00 CBCDP [facility] date description facility 2016-08-10 00:00:00 [facility] date description facility 2016-08-10 00:00:00 LIPIDS [facility] date description facility 2016-08-10 00:00:00 HGBA1C [facility] date description facility 2016-08-10 00:00:00 TSH [facility] date description facility 2016-08-10 00:00:00 CBCDP [facility] date description facility 2016-08-10 00:00:00 [facility] date description facility 2016-08-18 00:00:00 FIT Test All date description facility 2016-08-18 00:00:00 All date description facility 2016-08-18 00:00:00 FIT Test [facility] date description facility 2016-08-18 00:00:00 [facility] date description facility 2016-08-18 00:00:00 FIT Test [facility] date description facility 2016-08-18 00:00:00 [facility] date description facility 2016-08-18 00:00:00 FIT Test [facility] date description facility 2016-08-18 00:00:00 [facility] date description facility 2016-08-18 00:00:00 FIT Test [facility] date description facility 2016-08-18 00:00:00 [facility] date description facility 2016-09-01 00:00:00 Culture, routine - No blood, urine, st ool All date description facility 2016-09-01 00:00:00 FIT Test All date description facility 2016-09-01 00:00:00 All date description facility 2016-09-01 00:00:00 Culture, routine - No blood, [facility] stool [facility] date description facility 2016-09-01 00:00:00 FIT Test [facility] date description facility 2016-09-01 00:00:00 [facility] date description facility 2016-09-01 00:00:00 Culture, routine - No blood, [facility] urine, stool [place] date description facility 2016-09-01 00:00:00 FIT Test [facility] date description facility 2016-09-01 00:00:00 [facility] date description facility 2016-09-01 00:00:00 Culture, routine - No blood, [facility] urine, stool [place] date description facility 2016-09-01 00:00:00 FIT Test [facility] date description facility 2016-09-01 00:00:00 [facility] [place] date description facility 2016-09-01 00:00:00 Culture, routine - No blood, [facility] urine, stool [place] date description facility 2016-09-01 00:00:00 FIT Test [facility] date description facility 2016-09-01 00:00:00 [facility] date description facility 2016-11-20 00:00:00 HGBA1C All date description facility 2016-11-20 00:00:00 All date description facility 2016-11-20 00:00:00 HGBA1C [facility] date description facility 2016-11-20 00:00:00 [facility] date description facility 2016-11-20 00:00:00 HGBA1C [facility] date description facility 2016-11-20 00:00:00 [facility] date description facility 2016-11-20 00:00:00 HGBA1C [facility] date description facility 2016-11-20 00:00:00 [facility] date description facility 2016-11-20 00:00:00 HGBA1C [facility] date description facility 2016-11-20 00:00:00 [facility] date description facility 2017-01-31 00:00:00 [employer] Intramuscular Rani pension 0.5 All ML date description facility 2017-01-31 00:00:00 All date description facility 2017-01-31 00:00:00 [facility] [facility] Intramuscular Suspension 0.5 ML [facility] date description facility 2017-01-31 00:00:00 [facility] date description facility 2017-01-31 00:00:00 [facility] [facility] Intramuscular Suspension 0.5 ML [place] date description facility 2017-01-31 00:00:00 [facility] date description facility 2017-01-31 00:00:00 [facility] Quad[employer] [facility] Intramuscular Suspension 0.5 ML [place] date description facility 2017-01-31 00:00:00 [facility] [place] date description facility 2017-01-31 00:00:00 [facility] Quad[employer] [facility] Intramuscular Suspension 0.5 ML [place] date description facility 2017-01-31 00:00:00 [facility] [place] date description facility 2017-03-09 00:00:00 HGBA1C All date description facility 2017-03-09 00:00:00 All date description facility 2017-03-09 00:00:00 HGBA1C [facility] date description facility 2017-03-09 00:00:00 [facility] date description facility 2017-03-09 00:00:00 HGBA1C [facility] date description facility 2017-03-09 00:00:00 [facility] [place] date description facility 2017-03-09 00:00:00 HGBA1C [facility] date description facility 2017-03-09 00:00:00 [facility] [place] date description facility 2017-03-09 00:00:00 HGBA1C [facility] date description facility 2017-03-09 00:00:00 [facility] date description facility 2017-04-19 00:00:00 BMP All date description facility 2017-04-19 00:00:00 All date description facility 2017-04-19 00:00:00 BMP [facility] date description facility 2017-04-19 00:00:00 [facility] date description facility 2017-04-19 00:00:00 BMP [facility] [place] date description facility 2017-04-19 00:00:00 [facility] [place] date description facility 2017-04-19 00:00:00 BMP [facility] [place] date description facility 2017-04-19 00:00:00 [facility] date description facility 2017-04-19 00:00:00 BMP [facility] date description facility 2017-04-19 00:00:00 [facility] date description facility 2017-05-10 00:00:00 Wound Care All date description facility 2017-05-10 00:00:00 Podiatry Consultation All date description facility 2017-05-10 00:00:00 All date description facility 2017-05-10 00:00:00 Wound Care [facility] date description facility 2017-05-10 00:00:00 Podiatry Consultation [facility] date description facility 2017-05-10 00:00:00 [facility] date description facility 2017-05-10 00:00:00 Podiatry Consultation [facility] date description facility 2017-05-10 00:00:00 [facility] date description facility 2017-05-10 00:00:00 Wound Care [facility] date description facility 2017-05-10 00:00:00 Podiatry Consultation [facility] date description facility 2017-05-10 00:00:00 [facility] [place] date description facility 2017-05-10 00:00:00 Wound Care [facility] date description facility 2017-05-10 00:00:00 Podiatry Consultation [facility] [place] date description facility 2017-05-10 00:00:00 [facility] date description facility 2017-08-08 00:00:00 BMP All date description facility 2017-08-08 00:00:00 MICROALBUMIN-RANDOM URINE All date description facility 2017-08-08 00:00:00 HGBA1C All date description facility 2017-08-08 00:00:00 All date description facility 2017-08-08 00:00:00 BMP [facility] date description facility 2017-08-08 00:00:00 MICROALBUMIN-RANDOM URINE [facility] date description facility 2017-08-08 00:00:00 HGBA1C [facility] date description facility 2017-08-08 00:00:00 [facility] date description facility 2017-08-08 00:00:00 BMP [facility] [place] date description facility 2017-08-08 00:00:00 MICROALBUMIN-RANDOM URINE [facility] date description facility 2017-08-08 00:00:00 HGBA1C [facility] date description facility 2017-08-08 00:00:00 [facility] [place] date description facility 2017-08-08 00:00:00 BMP [facility] [place] date description facility 2017-08-08 00:00:00 MICROALBUMIN-RANDOM URINE [facility] date description facility 2017-08-08 00:00:00 HGBA1C [facility] date description facility 2017-08-08 00:00:00 [facility] date description facility 2018-02-05 00:00:00 First Vx - Ix admin for Medicare patie nts All date description facility 2018-02-05 00:00:00 [employer] Intramuscular Rani pension 0.5 All ML date description facility 2018-02-05 00:00:00 All date description facility 2018-02-05 00:00:00 First Vx - Ix admin for [facility] Medicare patients [facility] date description facility 2018-02-05 00:00:00 [facility] Intramuscular Suspension 0.5 ML [facility] date description facility 2018-02-05 00:00:00 [facility] date description facility 2018-02-05 00:00:00 First Vx - Ix admin for [facility] Medicare patients [place] date description facility 2018-02-05 00:00:00 [employer] [facility] Intramuscular Suspension 0.5 ML [place] date description facility 2018-02-05 00:00:00 [facility] [place] date description facility 2018-02-05 00:00:00 First Vx - Ix admin for [facility] Medicare patients [place] date description facility 2018-02-05 00:00:00 [employer] [facility] Intramuscular Suspension 0.5 ML [place] date description facility 2018-02-05 00:00:00 [facility] date description facility 2018-05-16 00:00:00 COMPREHENSIVE METABOLIC PANEL All date description facility 2018-05-16 00:00:00 LIPID SCREEN, FASTING All date description facility 2018-05-16 00:00:00 HGBA1C All date description facility 2018-05-16 00:00:00 CBC W/Diff/Plt All date description facility 2018-05-16 00:00:00 All date description facility 2018-05-16 00:00:00 COMPREHENSIVE METABOLIC PANEL [facility] date description facility 2018-05-16 00:00:00 LIPID SCREEN, FASTING [facility] date description facility 2018-05-16 00:00:00 HGBA1C [facility] date description facility 2018-05-16 00:00:00 CBC W/Diff/Plt [facility] date description facility 2018-05-16 00:00:00 [facility] date description facility 2018-05-16 00:00:00 COMPREHENSIVE METABOLIC PANEL [facility] [place] date description facility 2018-05-16 00:00:00 LIPID SCREEN, FASTING [facility] [place] date description facility 2018-05-16 00:00:00 HGBA1C [facility] [place] date description facility 2018-05-16 00:00:00 CBC W/Diff/Plt [facility] [place] date description facility 2018-05-16 00:00:00 [facility] [place] date description facility 2018-05-16 00:00:00 COMPREHENSIVE METABOLIC PANEL [facility] [place] date description facility 2018-05-16 00:00:00 LIPID SCREEN, FASTING [facility] [place] date description facility 2018-05-16 00:00:00 HGBA1C [facility] [place] date description facility 2018-05-16 00:00:00 CBC W/Diff/Plt [facility] [place] date description facility 2018-05-16 00:00:00 [facility] [place] date description facility 2018-06-06 00:00:00 COMPREHENSIVE METABOLIC PANEL All date description facility 2018-06-06 00:00:00 LIPID SCREEN, FASTING All date description facility 2018-06-06 00:00:00 TSH All date description facility 2018-06-06 00:00:00 CBC W/Diff/Plt All date description facility 2018-06-06 00:00:00 Opthalmology Consultation All date description facility 2018-06-06 00:00:00 All date description facility 2018-06-06 00:00:00 COMPREHENSIVE METABOLIC PANEL [facility] date description facility 2018-06-06 00:00:00 LIPID SCREEN, FASTING [facility] date description facility 2018-06-06 00:00:00 TSH [facility] date description facility 2018-06-06 00:00:00 CBC W/Diff/Plt [facility] date description facility 2018-06-06 00:00:00 [facility]thalmology Consultation [facility] date description facility 2018-06-06 00:00:00 [facility] date description facility 2018-06-06 00:00:00 COMPREHENSIVE METABOLIC PANEL [facility] [place] date description facility 2018-06-06 00:00:00 LIPID SCREEN, FASTING [facility] [place] date description facility 2018-06-06 00:00:00 TSH [facility] [place] date description facility 2018-06-06 00:00:00 CBC W/Diff/Plt [facility] [place] date description facility 2018-06-06 00:00:00 [facility]thalmology Consultation [facility] date description facility 2018-06-06 00:00:00 [facility] [place] date description facility 2018-06-06 00:00:00 COMPREHENSIVE METABOLIC PANEL [facility] [place] date description facility 2018-06-06 00:00:00 LIPID SCREEN, FASTING [facility] [place] date description facility 2018-06-06 00:00:00 TSH [facility] [place] date description facility 2018-06-06 00:00:00 CBC W/Diff/Plt [facility] [place] date description facility 2018-06-06 00:00:00 Opthalmology Consultation [facility] date description facility 2018-06-06 00:00:00 [facility] [place] date description facility 2019-02-28 00:00:00 Duoneb All date description facility 2019-02-28 00:00:00 Med Administration (PO-SL-IN-MA) All date description facility 2019-02-28 00:00:00 All date description facility 2019-02-28 00:00:00 Duoneb [facility] date description facility 2019-02-28 00:00:00 Med Administration [facility] (PO-SL-IN-MA) [facility] date description facility 2019-02-28 00:00:00 [facility] date description facility 2019-02-28 00:00:00 Duoneb [facility] [place] date description facility 2019-02-28 00:00:00 Med Administration [facility] (PO-SL-IN-MA) [place] date description facility 2019-02-28 00:00:00 [facility] [place] date description facility 2019-02-28 00:00:00 Duoneb [facility] [place] date description facility 2019-02-28 00:00:00 Med Administration [facility] (PO-SL-IN-MA) [place] date description facility 2019-02-28 00:00:00 [facility] [place] date description facility 2019-03-03 00:00:00 COMPREHENSIVE METABOLIC PANEL All date description facility 2019-03-03 00:00:00 LIPID SCREEN, FASTING All date description facility 2019-03-03 00:00:00 HGBA1C All date description facility 2019-03-03 00:00:00 B-PUMPING STATION ENGINEER All date description facility 2019-03-03 00:00:00 CBC W/Diff/Plt All date description facility 2019-03-03 00:00:00 ANTICOAG MGMT PT WARFARIN All date description facility 2019-03-03 00:00:00 All date description facility 2019-03-03 00:00:00 COMPREHENSIVE METABOLIC PANEL [facility] date description facility 2019-03-03 00:00:00 LIPID SCREEN, FASTING [facility] date description facility 2019-03-03 00:00:00 HGBA1C [facility] date description facility 2019-03-03 00:00:00 B-PUMPING STATION ENGINEER [facility] date description facility 2019-03-03 00:00:00 CBC W/Diff/Plt [facility] date description facility 2019-03-03 00:00:00 ANTICOAG MGMT PT WARFARIN [facility] date description facility 2019-03-03 00:00:00 [facility] date description facility 2019-03-03 00:00:00 COMPREHENSIVE METABOLIC PANEL [facility] date description facility 2019-03-03 00:00:00 LIPID SCREEN, FASTING [facility] date description facility 2019-03-03 00:00:00 HGBA1C [facility] date description facility 2019-03-03 00:00:00 B-PUMPING STATION ENGINEER [facility] date description facility 2019-03-03 00:00:00 CBC W/Diff/Plt [facility] date description facility 2019-03-03 00:00:00 ANTICOAG MGMT PT WARFARIN [facility] date description facility 2019-03-03 00:00:00 [facility] date description facility 2019-03-03 00:00:00 COMPREHENSIVE METABOLIC PANEL [facility] date description facility 2019-03-03 00:00:00 LIPID SCREEN, FASTING [facility] date description facility 2019-03-03 00:00:00 HGBA1C [facility] date description facility 2019-03-03 00:00:00 B-PUMPING STATION ENGINEER [facility] date description facility 2019-03-03 00:00:00 CBC W/Diff/Plt [facility] date description facility 2019-03-03 00:00:00 ANTICOAG MGMT PT WARFARIN [facility] date description facility 2019-03-03 00:00:00 [facility] date description facility 2019-03-10 00:00:00 [facility] description [facility] 2019-03-10 [facility] date description facility 2019-03-17 00:00:00 ANTICOAG MGMT PT WARFARIN All date description facility 2019-03-17 00:00:00 All date description facility 2019-03-17 00:00[facility]00 [facility] date description facility 2019-03-17 00:00:00 ANTICOAG MGMT PT WARFARIN [facility] date description [facility] 2019-03-17 [facility] description facility 2019-03-17 00:00:00 ANTICOAG MGMT PT WARFARIN [facility] date description [facility] 2019-03-17 [facility] description [facility] 2019-03-17 00:00:00 ANTICOAG MGMT PT WARFARIN [facility] date description [facility] 2019-03-17 [facility] description facility 2019-03-24 00:00:00 ANTICOAG MGMT PT WARFARIN All date description facility 2019-03-24 00:00:00 All date description facility 2019-03-24 00:00:00 [facility] date description facility 2019-03-24 00:00:00 ANTICOAG MGMT PT WARFARIN [facility] date description facility 2019-03-24 00:00[facility] date description facility 2019-03-24 00:00:00 ANTICOAG MGMT PT WARFARIN [facility] date description facility 2019-03-24 00:00[facility] description [facility] 2019-03-24 00:00:00 ANTICOAG MGMT PT WARFARIN [facility] date description facility 2019-03-24 00:00[facility] date description facility 2019-03-31 00:00:00 Influenza-Medicare All date description facility 2019-03-31 00:00:00 First Vx - Ix admin for Medicare patie nts All date description facility 2019-03-31 00:00:00 Addl Vx - Ix admin for Medicare patien ts All date description facility 2019-03-31 00:00:00 All date description facility 2019-03-31 00:00:00 [facility] date description facility 2019-03-31 00:00:00 First Vx [facility] date description facility 2019-03-31 00:00:00 Addl Vx - [facility] date description facility 2019-03-31 00:00[facility] date description facility 2019-03-31 00:00:00 [facility] date description facility 2019-03-31 00:00:00 [facility] [place] date description facility 2019-03-31 00:00:00 Addl Vx [facility] [place] date description facility 2019-03-31 00:00[facility] description [facility] 2019-03-31 00:00:00 [facility] [place] date description facility 2019-03-31 00:00:00 [facility] V[facility] [place] date description facility 2019-03-31 00:00:00 Addl Vx [facility] [place] date description facility 2019-03-31 00:[facility] description facility 2019-04-02 00:00:00 ANTICOAG MGMT PT WARFARIN All date description facility 2019-04-02 00:00:00 All date description facility 2019-04-02 00:00:00 ANTICOAG MGMT PT [facility]FARIN [facility] date description facility 2019-04-02 00:00:00 [facility] date description facility 2019-04-02 00:00:00 ANTICOAG MGMT PT WARFARIN [facility] date description facility 2019-04-02 00:00:00 [facility] date description facility 2019-04-02 00:00:00 ANTICOAG MGMT PT WARFARIN [facility] date description facility 2019-04-02 00:00:00 [facility] date description facility 2019-05-07 00:00:00 ANTICOAG MGMT PT WARFARIN All date description facility 2019-05-07 00:00:00 All date description facility 2019-05-07 00:00:00 ANTICOAG MGMT PT WARFARIN [facility] date description facility 2019-05-07 00:00:00 [facility] date description facility 2019-05-07 00:00:00 ANTICOAG MGMT PT WARFARIN [facility] date description facility 2019-05-07 00:00:00 [facility] date description facility 2019-05-07 00:00:00 ANTICOAG MGMT PT WARFARIN [facility] date description facility 2019-05-07 00:00:00 [facility] date description facility 2019-06-04 00:00:00 HGBA1C All date description facility 2019-06-04 00:00:00 All date description facility 2019-06-04 00:00:00 HGBA1C [facility] date description facility 2019-06-04 00:00:00 [facility] date description facility 2019-06-04 00:00:00 HGBA1C [facility] date description facility 2019-06-04 00:00:00 [facility] date description facility 2019-06-04 00:00:00 HGBA1C [facility] date description facility 2019-06-04 00:00:00 [facility] date description facility 2019-06-11 00:00:00 ANTICOAG MGMT PT WARFARIN All date description facility 2019-06-11 00:00:00 All date description facility 2019-06-11 00:00:00 ANTICOAG MGMT PT WARFARIN [facility] date description facility 2019-06-11 00:00:00 [facility] date description facility 2019-06-11 00:00:00 ANTICOAG MGMT PT WARFARIN [facility]:00:00 ANTICOAG MGMT PT WARFARIN [facility] date description facility 2019-06-11 [facility] 2019-06-19 00:00:00 ANTICOAG MGMT PT WARFARIN All date description facility 2019-06-19 00:00:00 All date description facility 2019-06-19 00:00:00 ANTICOAG MGMT PT WARFARIN [facility] date description facility 2019-06-19 00:00:00 [facility] date description facility 2019-06-19 00:00:00 ANTICOAG MGMT PT WARFARIN [facility] date description facility 2019-06-19 [facility] 2019-06-19 00:00:00 ANTICOAG MGMT PT WARFARIN [facility] date description facility 2019-06-19 00:00:00 [facility] date description facility 2019-07-08 00:00:00 ANTICOAG MGMT PT WARFARIN All date description facility 2019-07-08 00:00:00 All date description facility 2019-07-08 00:00:00 ANTICOAG MGMT PT WARFARIN [facility] date description facility 2019-07-08 00:00:00 [facility] date description facility 2019-07-08 00:00:00 ANTICOAG MGMT PT WARFARIN [facility] date description facility 2019-07-08 00:00:00 [facility] date description facility 2019-07-08 00:00:00 ANTICOAG MGMT PT WARFARIN [facility] date description facility 2019-07-08 [facility] 2019-08-25 00:00:00 ANTICOAG MGMT PT WARFARIN All date description facility 2019-08-25 00:00:00 All date description facility 2019-08-25 00:00:00 ANTICOAG MGMT PT WARFARIN [facility] date description facility 2019-08-25 00:00[facility] 2019-08-25 00:00:00 ANTICOAG MGMT PT WARFARIN [facility] date description facility 2019-08-25 [facility] 2019-08-25 00:00:00 ANTICOAG MGMT PT WARFARIN [facility] date description facility 2019-08-25 00:00[facility]00 [facility] date description facility 2019-09-08 00:00:00 ANTICOAG MGMT PT WARFARIN All date description facility 2019-09-08 00:00:00 All date description facility 2019-09-08 00:00:00 ANTICOAG MGMT PT WARFARIN [facility] date description facility 2019-09-08 00:00[facility] date description facility 2019-09-08 00:00:00 ANTICOAG MGMT PT WARFARIN [facility] date description facility 2019-09-08 00:00[facility]00 [facility] 2019-09-29 00:00:00 ANTICOAG MGMT PT WARFARIN All date description facility 2019-09-29 00:00:00 All date description facility 2019-09-29 00:00:00 ANTICOAG MGMT PT WARFARIN [facility] date description facility 2019-09-29 00:00[facility]00 [facility] description facility 2019-09-29 00:00:00 ANTICOAG MGMT PT WARFARIN [facility] description facility 2019-09-29 00:00:00 [facility] date description facility 2019-11-07 00:00:00 ANTICOAG MGMT PT WARFARIN [facility] date description facility 2019-11-07 00:00:00 [facility] date description facility 2019-11-12 00:00:00 POC PROTHROMBIN TIME All date description facility 2019-11-12 00:00:00 All date description facility 2019-11-12 00:00:00 POC PROTHROMBIN TIME [facility] date description facility 2019-11-12 00:00:00 ANTICOAG MGMT PT WARFARIN [facility] date description facility 2019-11-12 [facility]:00[facility] description facility 2019-11-20 00:00:00 ANTICOAG MGMT PT WARFARIN [facility] date description facility 2019-11-20 00[facility]00[facility] date description facility 2019-11-28 00:00:00 ANTICOAG MGMT PT WARFARIN [facility] date description facility 2019-11-28 00:00:00 [facility] date description facility 2019-12-08 00:00:00 ANTICOAG MGMT PT WARFARIN [facility] date description facility 2019-12-08 00:00:00 [facility] date description facility 2019-12-19 00:00:00 ANTICOAG MGMT PT WARFARIN [facility] date description facility 2019-12-19 00:00:00 [facility] date description facility 2019-12-25 00:00:00 POC PROTHROMBIN TIME [facility] date description facility 2019-12-25 00:00:00 ANTICOAG MGMT PT WARFARIN [facility] date description facility 2019-12-25 [facility] description facility 2020-01-01 00:00:00 ANTICOAG MGMT PT WARFARIN [facility] date description facility 2020-01-01 [facility] description facility 2020-01-23 00:00:00 ANTICOAG MGMT PT WARFARIN [facility] date description facility 2020-01-23 [facility]:00[facility] description facility 2020-01-28 00:00:00 [facility]BA[facility]C [facility] description [facility] 2020-01-28 [facility] description facility 2020-02-10 00:00:00 ANTICOAG MGMT PT WARFARIN [facility] date description facility 2020-02-10 00:00[facility] date description facility 2020-02-12 00:00:00 ANTICOAG MGMT PT WARFARIN [facility] date description facility 2020-02-12 00:00[facility] date description facility 2020-02-19 00:00:00 ANTICOAG MGMT PT WARFARIN [facility] date description facility 2020-02-19 00:00[facility] date description facility 2020-03-01 00:00:00 ANTICOAG MGMT PT WARFARIN [facility] date description facility 2020-03-01 [facility] description [facility] 2020-03-08 00:00:00 ANTICOAG MGMT PT WARFARIN [facility] date description facility 2020-03-08 [facility] description [facility] 2020-03-16 00:00:00 COMPREHENSIVE METABOLIC PANEL [facility] date description facility 2020-03-16 00:00:00 LIPIDS SCREEN [facility] date description facility 2020-03-16 00:00:00 CBC W/Diff/Plt [facility] date description facility 2020-03-16 00:00:00 ANTICOAG MGMT PT WARFARIN [facility] date description facility 2020-03-16 00:00:00 [facility] date description facility 2020-03-26 00:00:00 ANTICOAG MGMT PT WARFARIN [facility] date description facility 2020-03-26 00:00:00 [facility] date description facility 2020-04-05 00:00:00 ANTICOAG MGMT PT WARFARIN [facility] date description facility 2020-04-05 00:00:00 [facility] date description facility 2020-04-13 00:00:00 CHEST 2 VIEW [facility] date description facility 2020-04-13 00:00:00 [facility] Results Social History date description facility 2016-08-03 00:00:00 Former smoker [facility] date description facility 2016-08-10 00:00:00 Former smoker [facility] date description facility 2016-08-18 00:00:00 [facility] 2016-09-01 00:00:00 Former sm[facility] date description facility 2016-09-15 00:00:00 Former smoker All date description facility 2016-12-07 00:00:00 Former smoker [facility] date description facility 2017-04-19 00:00:00 Former smoker All date description facility 2017-05-10 00:00:00 Former smoker [facility] date description facility 2017-08-16 00:00:00 Former smoker [facility] date description facility 2017-11-13 00:00:00 Former smoker [facility] [place] date description facility 2018-06-06 00:00:00 Former smoker All date description facility 2018-09-07 00:00:00 Former smoker All date description facility 2019-02-28 00:00:00 Former smoker All date description facility 2019-03-03 00:00:00 Former smoker All date description facility 2019-03-10 00:00:00 Former smoker All date description facility 2019-03-14 00:00:00 Former sm[facility] date description facility 2019-03-17 00:00:00 Former sm[facility] date description facility 2019-03-24 00:00:00 Former smoker [facility] date description facility 2019-03-31 00:00:00 Former smoker [facility] date description facility 2019-05-06 00:00:00 Former smoker [facility] [place] date description facility 2019-09-29 00:00:00 Former smoker All date description facility 2020-04-13 00:00:00 Former smoker [facility] date description facility 2020-04-20 00:00:00 Former smoker [facility] Social History date description facility 2016-08-03 00:00:00 Former smoker [facility] date description facility 2016-08-10 00:00:00 Former smoker [facility] date description facility 2016-08-18 00:00:00 [facility] 2016-09-01 00:00:00 Former sm[facility] date description facility 2016-09-15 00:00:00 Former smoker All date description facility 2016-12-07 00:00:00 Former smoker [facility] date description facility 2017-04-19 00:00:00 Former smoker All date description facility 2017-05-10 00:00:00 Former smoker [facility] date description facility 2017-08-16 00:00:00 Former smoker [facility] date description facility 2017-11-13 00:00:00 Former smoker [facility] date description facility 2018-06-06 00:00:00 Former smoker All date description facility 2018-09-07 00:00:00 Former smoker All date description facility 2019-02-28 00:00:00 Former smoker All date description facility 2019-03-03 00:00:00 Former smoker All date description facility 2019-03-10 00:00:00 Former smoker All date description facility 2019-03-14 00:00:00 Former sm[facility] date description facility 2019-03-17 00:00:00 Former smoker [facility] date description facility 2019-03-24 00:00:00 Former smoker [facility] date description facility 2019-03-31 00:00:00 Former smoker [facility] date description facility 2019-05-06 00:00:00 Former smoker [facility] date description facility 2019-09-29 00:00:00 Former smoker All date description facility 2020-04-13 00:00:00 Former smoker [facility] date description facility 2020-04-20 00:00:00 Former smoker [facility] date description facility [phone]
[2020-04-20 19:17] LABS: CRP - C-REACTIVE PROTEIN < 1.0 mg/dL (0-1.0)
[2020-04-21 08:38] LABS: BUN - BLOOD UREA NITROGEN 41 mg/dL (6-20); CALCIUM 9.1 mg/dL (8.5-10.3); CARBON DIOXIDE - CO2 28 mmol/L (21-32); CHLORIDE 97 mmol/L (101-111); CREATININE 1.7 mg/dL (0.6-1.2); GLUCOSE 238 mg/dL (70-100); SODIUM 133 mmol/L (135-145)
== END 2020-04-20 11:03 | disposition home or self-care (01) ==
LOC: LAB.N 11:02
PROVIDERS: ATTEND Nurse Practitioner Family
DX: E11.621 Type 2 diabetes mellitus with foot ulcer (principal); I12.9 Hypertensive chronic kidney disease with stage 1 through stage 4 chronic kidney disease, or unspecified chronic kidney disease; E11.22 Type 2 diabetes mellitus with diabetic chronic kidney disease; N18.9 Chronic kidney disease, unspecified
CPT/HCPCS: 36415; 80048; 85651; 86140

== ENCOUNTER 2020-04-21 07:00 | Outpatient (CLI) | payer MEDICARE, MEDICAID | END 2020-04-21 23:59 | disposition home or self-care (01) | LOC: LAB.R 07:00 | PROVIDERS: ATTEND Nurse Practitioner Family | DX: E11.621 Type 2 diabetes mellitus with foot ulcer (principal) | CPT/HCPCS: 81599; 87070; 87077; 87181; 87186; 87205 ==

== ENCOUNTER 2020-05-07 08:00 | Outpatient (CLI) | payer MEDICARE, MEDICAID | END 2020-05-07 23:59 | disposition home or self-care (01) | LOC: LAB.WCP 08:00 | PROVIDERS: ATTEND Nurse Practitioner Family | DX: Z79.01 Long term (current) use of anticoagulants (principal) ==

== ENCOUNTER 2020-05-20 08:59 | Outpatient (CLI) | payer MEDICARE, MEDICAID ==
[2020-05-20] MEDS ORDERED: GADOBUTROL 10 MMOL/10 ML VIAL ONE (10:50)
[2020-05-20] MEDS ORDERED: GADOBUTROL 10 MMOL/10 ML VIAL IVP ONE (12:01)
--- NOTE | 2020-05-20 15:11 | MRI Report ---
PROCEDURE: Foot RT W/WO INDICATIONS: DIABETIC FOOT ULCER CONTRAST: IV CONTRAST: Gadavist ml: 10 TECHNIQUE: Noncontrast sagittal T1 spin echo and T2 fast spin echo with fat saturation, long-axis T1 spin echo a nd T2 fast spin echo with fat saturation; short-axis T1 spin echo, proton density fast spin echo, and T2 fast spin echo with fat saturation through the forefoot. Post-contrast short axis, long axis, an d sagittal T1 spin echo with fat saturation through the forefoot. COMPARISON: None. FINDINGS: Image quality: Excellent. Bones and joints: No suspicious osseous enhancement. No bone marrow contusions or metatarsal stress fractures. The sesamoid bones appear in expected positions, without internal edema. Osteoarthritic changes at MTP joints and interphalangeal joints are seen more prominent at first MTP joint. No intra osseous lesions. Soft tissues: There is dorsal forefoot soft tissue edema and swelling predominantly over lateral aspe ct of midfoot and forefoot at the level of third through fifth MTP joints. No discrete drainable absc ess collection is seen. The visualized plantar foot muscles demonstrate normal signal and bulk. Visu alized flexor and extensor tendons appear intact, without tenosynovitis. The distal insertions of th e peroneus brevis and longus tendons appear intact. The principal Lisfranc ligament appears intact. No soft tissue ganglion cysts or bursal fluid collections. Sagittal images demonstrate no evidence for plantar plate tears. IMPRESSION: 1. Cellulitis involving dorsal aspect of midfoot and forefoot predominantly over lateral aspect as ab ove. No discrete drainable abscess collection. 2. No gross forefoot tendon or ligament pathology. 3. No evidence of osteomyelitis. No fracture or dislocation. 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 Reviewed by: Vince La MD on 05/20/2020 3:09 PM PST Approved by: Vince La MD on 05/20/2020 3:09 PM PST Station ID: [id number]
== END 2020-05-20 09:00 | disposition home or self-care (01) ==
LOC: DI 08:59
PROVIDERS: ATTEND Nurse Practitioner Family
DX: E11.621 Type 2 diabetes mellitus with foot ulcer (principal); L97.509 Non-pressure chronic ulcer of other part of unspecified foot with unspecified severity; I50.9 Heart failure, unspecified; L03.115 Cellulitis of right lower limb; M19.071 Primary osteoarthritis, right ankle and foot
CPT/HCPCS: 73720; 93306; A9585

== ENCOUNTER 2020-08-04 08:00 | Outpatient (CLI) | payer MEDICARE, MEDICAID | END 2020-08-04 23:59 | disposition home or self-care (01) | LOC: LAB.WCP 08:00 | PROVIDERS: ATTEND Nurse Practitioner Family | DX: I48.91 Unspecified atrial fibrillation (principal); Z79.01 Long term (current) use of anticoagulants ==

== ENCOUNTER 2020-08-30 14:49 | Outpatient (CLI) | payer MEDICARE, MEDICAID ==
[2020-08-30 19:16] LABS: CALCIUM 8.5 mg/dL (8.5-10.3); POTASSIUM 4.8 mmol/L (3.5-5.0)
[2020-08-30 19:35] LABS: CREATININE,URINE 55.7 mg/dL; MICROALBUM/CREATININE RATIO,UR 766.6 ug/mg (<30.0); MICROALBUMIN,URINE 42.7 mg/dL (0-300.0)
[2020-08-30 20:47] LABS: ESTIMATED AVERAGE GLUCOSE 292 mg/dL (70-100); HEMOGLOBIN A1c% 11.8 % (4.27-6.07)
== END 2020-08-30 14:50 | disposition home or self-care (01) ==
LOC: LAB.N 14:49
PROVIDERS: ATTEND Nurse Practitioner Family
DX: E11.622 Type 2 diabetes mellitus with other skin ulcer (principal)
CPT/HCPCS: 36415; 80048; 82043; 82570; 83036

== ENCOUNTER 2020-09-15 | Outpatient (CLI) | payer MEDICARE, MEDICAID | END 2020-09-15 16:47 | disposition EMS.NT | DX: R07.9 Chest pain, unspecified (principal) ==

== ENCOUNTER 2021-06-13 12:02 | Outpatient (CLI) | payer MEDICARE, MEDICAID ==
[2021-06-13 17:46] LABS: BASOPHILS # (AUTO) 0.1 10^3/uL (0.0-0.1); BASOPHILS % (AUTO) 1.4 %; EOSINOPHILS # (AUTO) 0.1 10^3/uL (0.0-0.7); EOSINOPHILS % (AUTO) 1.7 %; HCT - HEMATOCRIT 54.1 % (42.0-52.0); LYMPHOCYTES # (AUTO) 1.2 10^3/uL (1.5-3.5); LYMPHOCYTES % (AUTO) 18.1 %; MEAN CORPUSCULAR HEMOGLOBIN 30.3 pg (27.0-31.0); MEAN CORPUSCULAR HGB CONC 33.3 g/dL (32.0-36.0); MEAN CORPUSCULAR VOLUME 91.1 fL (80.0-94.0); MEAN PLATELET VOLUME 11.2 fL (7.4-11.4); MONOCYTES # (AUTO) 0.5 10^3/uL (0.0-1.0); MONOCYTES % (AUTO) 8.1 %; NEUTROPHILS # (AUTO) 4.6 10^3/uL (1.5-6.6); NEUTROPHILS % (AUTO) 70.2 %; PLT - PLATELET COUNT 202 10^3/uL (130-450); RED BLOOD COUNT 5.94 10^6/uL (4.70-6.10); RED CELL DISTRIBUTION WIDTH 14.5 % (12.0-15.0); WHITE BLOOD COUNT 6.6 x10^3/uL (4.8-10.8)
[2021-06-13 18:15] LABS: ALBUMIN 3.7 g/dL (3.2-5.5); ALBUMIN/GLOBULIN RATIO 0.8 (1.0-2.2); ALKALINE PHOSPHATASE 68 IU/L (42-121); ALT ALANINE AMINOTRANSFERASE 23 IU/L (10-60); AST ASPARTATE AMINOTRANSFERASE 20 IU/L (10-42); BILIRUBIN,TOTAL 0.7 mg/dL (0.2-1.0); BUN - BLOOD UREA NITROGEN 42 mg/dL (6-20); CALCIUM 8.9 mg/dL (8.5-10.3); CARBON DIOXIDE - CO2 25 mmol/L (21-32); CHLORIDE 95 mmol/L (101-111); CHOL/HDL RATIO 4.5 (<5.0); CHOLESTEROL 193 mg/dL; CREATININE 1.4 mg/dL (0.6-1.2); GFR - MDRD 50 (>89); GLUCOSE 241 mg/dL (70-100); HDL CHOLESTEROL 43 mg/dL; LDL CHOLESTEROL,CALCULATED 109 mg/dL; LDL/HDL RATIO 2.5 (<3.6); POTASSIUM 4.3 mmol/L (3.5-5.0); SODIUM 131 mmol/L (135-145); TOTAL PROTEIN 8.3 g/dL (6.7-8.2); TRIGLYCERIDES 203 mg/dL; VLDL CHOLESTEROL 41 mg/dL
[2021-06-13 18:23] LABS: THYROID STIMULATING HORMONE 1.64 uIU/mL (0.34-5.60)
[2021-06-13 20:16] LABS: ESTIMATED AVERAGE GLUCOSE 266 mg/dL (70-100); HEMOGLOBIN A1c% 10.9 % (4.27-6.07)
== END 2021-06-13 12:03 | disposition home or self-care (01) ==
LOC: LAB.N 12:02
PROVIDERS: ATTEND Family Medicine
DX: I12.9 Hypertensive chronic kidney disease with stage 1 through stage 4 chronic kidney disease, or unspecified chronic kidney disease (principal); E11.22 Type 2 diabetes mellitus with diabetic chronic kidney disease; N18.9 Chronic kidney disease, unspecified; E11.622 Type 2 diabetes mellitus with other skin ulcer; E78.5 Hyperlipidemia, unspecified; Z12.5 Encounter for screening for malignant neoplasm of prostate
CPT/HCPCS: 36415; 80053; 80061; 83036; 84443; 85025; G0103; 82043; 82570; 83721; 84153

== ENCOUNTER 2021-09-09 15:21 | Outpatient (CLI) | payer MEDICARE, MEDICAID ==
[2021-09-09 18:05] LABS: CREATININE 1.7 mg/dL (0.6-1.2); POTASSIUM 4.6 mmol/L (3.5-5.0)
[2021-09-09 20:13] LABS: ESTIMATED AVERAGE GLUCOSE 240 mg/dL (70-100)
[2021-09-09 22:20] LABS: CREATININE,URINE 99.5 mg/dL; MICROALBUM/CREATININE RATIO,UR 1867.3 ug/mg (<30.0); MICROALBUMIN,URINE 185.8 mg/dL (0-300.0)
== END 2021-09-09 15:22 | disposition home or self-care (01) ==
LOC: LAB.N 15:21
PROVIDERS: ATTEND Nurse Practitioner
DX: E11.622 Type 2 diabetes mellitus with other skin ulcer (principal)
CPT/HCPCS: 36415; 80048; 82043; 82570; 83036

== ENCOUNTER 2023-03-09 08:00 | Outpatient (CLI) | payer MEDICARE | END 2023-03-09 23:59 | disposition home or self-care (01) | LOC: LAB.WCP 08:00 | PROVIDERS: ATTEND Nurse Practitioner | DX: Z79.01 Long term (current) use of anticoagulants (principal) ==

== ENCOUNTER 2023-11-26 08:20 | Outpatient (CLI) | payer MEDICARE ==
[2023-11-26 12:18] LABS: BASOPHILS # (AUTO) 0.1 10^3/uL (0.0-0.1); BASOPHILS % (AUTO) 1.3 %; EOSINOPHILS # (AUTO) 0.1 10^3/uL (0.0-0.7); EOSINOPHILS % (AUTO) 2.6 %; HCT - HEMATOCRIT 51.8 % (42.0-52.0); HGB - HEMOGLOBIN 15.4 g/dL (14.0-18.0); LYMPHOCYTES # (AUTO) 0.8 10^3/uL (1.5-3.5); LYMPHOCYTES % (AUTO) 14.9 %; MEAN CORPUSCULAR HEMOGLOBIN 27.9 pg (27.0-31.0); MEAN CORPUSCULAR HGB CONC 29.7 g/dL (32.0-36.0); MEAN CORPUSCULAR VOLUME 93.8 fL (80.0-94.0); MEAN PLATELET VOLUME 11.3 fL (7.4-11.4); MONOCYTES # (AUTO) 0.7 10^3/uL (0.0-1.0); MONOCYTES % (AUTO) 12.3 %; NEUTROPHILS # (AUTO) 3.7 10^3/uL (1.5-6.6); NEUTROPHILS % (AUTO) 68.3 %; PLT - PLATELET COUNT 195 10^3/uL (130-450); RED BLOOD COUNT 5.52 10^6/uL (4.70-6.10); RED CELL DISTRIBUTION WIDTH 16.7 % (12.0-15.0); WHITE BLOOD COUNT 5.4 x10^3/uL (4.8-10.8)
[2023-11-26 12:21] LABS: PT - PROTHROMBIN TIME 21.3 secs (9.9-12.6)
[2023-11-26 12:51] LABS: CREATININE,URINE 87.5 mg/dL
[2023-11-26 12:56] LABS: ALBUMIN 3.7 g/dL (3.2-5.5); ALBUMIN/GLOBULIN RATIO 0.9 (1.0-2.2); ALKALINE PHOSPHATASE 64 IU/L (42-121); ALT ALANINE AMINOTRANSFERASE 15 IU/L (10-60); AST ASPARTATE AMINOTRANSFERASE 15 IU/L (10-42); BILIRUBIN,TOTAL 0.7 mg/dL (0.2-1.0); BUN - BLOOD UREA NITROGEN 19 mg/dL (6-20); CALCIUM 9.3 mg/dL (8.5-10.3); CARBON DIOXIDE - CO2 28 mmol/L (21-32); CHLORIDE 104 mmol/L (101-111); CHOL/HDL RATIO 4.2 (<5.0); CHOLESTEROL 163 mg/dL; CREATININE 1.3 mg/dL (0.6-1.3); GFR - MDRD 55 (>89); GLUCOSE 180 mg/dL (74-104); HDL CHOLESTEROL 39 mg/dL; LDL CHOLESTEROL,CALCULATED 98 mg/dL; LDL/HDL RATIO 2.5 (<3.6); POTASSIUM 4.4 mmol/L (3.5-4.5); SODIUM 136 mmol/L (135-145); TRIGLYCERIDES 132 mg/dL; VLDL CHOLESTEROL 26 mg/dL
[2023-11-26 13:07] LABS: THYROID STIMULATING HORMONE 2.02 uIU/mL (0.34-5.60)
[2023-11-26 13:44] LABS: MICROALBUMIN,URINE > 225.0 mg/dL
[2023-11-26 14:04] LABS: ESTIMATED AVERAGE GLUCOSE 229 mg/dL (70-100); HEMOGLOBIN A1c% 9.6 % (4.27-6.07)
== END 2023-11-26 08:21 | disposition home or self-care (01) ==
LOC: LAB.N 08:20
PROVIDERS: ATTEND Nurse Practitioner
DX: E11.9 Type 2 diabetes mellitus without complications (principal); E78.5 Hyperlipidemia, unspecified; I48.91 Unspecified atrial fibrillation; Z12.5 Encounter for screening for malignant neoplasm of prostate; R06.02 Shortness of breath; D68.69 Other thrombophilia; Z79.01 Long term (current) use of anticoagulants
CPT/HCPCS: 36415; 80053; 80061; 82043; 82570; 83036; 83880; 84443; 85025; 85610; G0103; 83721; 84153